=== PATIENT | male | born 1960 | race Caucasian/White ===

== ENCOUNTER 2022-01-02 01:37 | Inpatient (IN) | payer SELFPAY ==
[2022-01-02 02:58] LABS: Absolute Lymphocytes (CBC) 1.3 K/uL (0.7-4.9); Hematocrit 45.3 % (39.6-49.0); Lymphocytes % 20.5 % (15.3-44.8); MCV 86.7 fL (80-100); MPV 8.6 fL (7.6-11.3); RBC Red Blood Cell Count 5.23 M/uL (4.33-5.43)
[2022-01-02 03:16] LABS: Potassium 3.5 mmol/L (3.5-5.1)
[2022-01-02] MEDS ORDERED: METHYLPREDNISOLONE 125 MG INJ ONE (03:18)
[2022-01-02] MEDS ORDERED: LEVALBUTEROL 1.25 MG/3 ML NEB ONE (03:18)
[2022-01-02] MEDS ORDERED: BENZONATATE 100 MG CAP PO ONE (03:18)
[2022-01-02 03:20] LABS: Troponin High Sensitivity 113.9 pg/mL (<58.9)
[2022-01-02] MEDS ORDERED: FUROSEMIDE 40 MG/4 ML VIAL ONE (03:27)
--- NOTE | 2022-01-02 04:28 | P.HP ---
Certification for Inpatient Patient admitted to: Observation With expected LOS: <2 Midnights Patient will require the following post-hospital care: None Practitioner: I am a practitioner with admitting privileges, knowledge of patient current condition, hospital course, and medical plan of care. Services: Services provided to patient in accordance with Admission requirements found in Title 42 Section 412.3 of the Code of Federal Regulations Patient History Date of Service: 01/02/22 Reason for admission: COPD Exacerbation, Elevated Troponin History of Present Illness: Patient is a 61-year-old male with CHF (unknown EF), COPD, HTN who presented to the ED with complaints of shortness of breath. Patient was already in the hospital staying with his , whom I admitted earlier this evening, when his shortness of breath began. Patient reports smoking 1ppd. He was noted to be hypertensive and tachypneic upon arrival but saturating 100% on room air. Labs significant for troponin 113, BNP 8266, Cr 1.47, BUN 35, chest xray negative. He was given breathing treatments, therapeutic lovenox, aspirin, lasix, solumedrol, and tessalon perles. He denies chest pain. He reports feeling a little better after treatment. Patient is admitted for further evaluation and treatment. Home medications list reviewed: Yes - Past Medical/Surgical History Diabetic: No -: Hypertension -: COPD -: CHF -: Appendectomy Psychosocial/ Personal History: Patient is . - Social History Smoking Status: Current every day smoker Alcohol use: No CD- Drugs: No Caffeine use: Yes Place of Residence: [facility] Review of Systems Respiratory: Shortness of Breath Physical Examination - Physical Exam General: Alert, In no apparent distress HEENT: Atraumatic, PERRLA, EOMI, Sclerae nonicteric Neck: Supple, 2+ carotid pulse no bruit, No LAD, Without JVD or thyroid abnormality Respiratory: Expiratory wheezes Cardiovascular: Regular rate/rhythm, Normal S1 S2 Gastrointestinal: Normal bowel sounds, No tenderness Musculoskeletal: No tenderness Integumentary: No rashes Neurological: Normal speech, Normal strength at 5/5 x4 extr, Normal tone, Normal affect - Studies Laboratory Data (last 24 hrs) 01/02/22 02:38: WBC 6.4, Hgb 15.2, Hct 45.3, Plt Count 245 01/02/22 02:38: Sodium 139, Potassium 3.5, BUN 35 H, Creatinine 1.47 H, Glucose 88 01/02/22 02:35: WBC Cancelled, Hgb Cancelled, Hct Cancelled, Plt Count Cancelled Assessment and Plan - Problems (Diagnosis) (1) Elevated troponin Current Visit: Yes Status: Acute (2) COPD exacerbation Current Visit: Yes Status: Acute (3) Tobacco abuse Current Visit: Yes Status: Chronic (4) Hypertension Current Visit: Yes Status: Chronic Qualifiers: Hypertension type: primary hypertension Qualified Code(s): I10 - Essential (primary) hypertension (5) CHF (congestive heart failure) Current Visit: Yes Status: Acute Qualifiers: Heart failure type: unspecified Heart failure chronicity: acute on chronic Qualified Code(s): I50.9 - Heart failure, unspecified - Plan -Continue therapeutic lovenox q12h. Cardiology consulted. Monitor on telemetry -Repeat troponin in 6 hours and trend -Breathing treatments as needed -Scheduled nebs and IV steroids -Monitor pulse ox. Supplemental O2 as needed -Lipid panel, TSH, and echo ordered -Monitor and replete electrolytes per protocol -Full code Discharge Plan: Home Plan to discharge in: 24 Hours - Advance Directives Does patient have a Living Will: No Does patient have a Durable POA for Healthcare: No - Code Status/Comfort Care Code Status Assessed: Yes (Full) Critical Care: No Time Spent Managing Pts Care (In Minutes): 50
[2022-01-02] MEDS ORDERED: ASPIRIN EC 81 MG TAB PO ONE (04:31)
[2022-01-02] MEDS ORDERED: ENOXAPARIN 80 MG/0.8 ML SQ ONE (04:32)
--- NOTE | 2022-01-02 06:00 | EDPHYS ---
Physician Documentation [facility] Name: Fausto Johnson Age: 61 yrs Sex: Male : 1960 Arrival Date: 01/02/2022 Time: 01:38 Bed 14 Private MD: ED Physician Tushar Armstrong HPI: 01/02 05:59 This 61 yrs old Male presents to ER via Wheelchair with complaints of Breathing kdr Difficulty. 05:59 The patient has shortness of breath at rest, with light activity. Onset: The kdr symptoms/episode began/occurred gradually, 2 day(s) ago. Duration: The symptoms are continuous, and are steadily getting worse. The patient's shortness of breath is aggravated by coughing, exertion, light activity. Associated signs and symptoms: Pertinent positives: Pertinent negatives:. Severity of symptoms: At their worst the symptoms were mild in the emergency department the symptoms are unchanged. The patient has not experienced similar symptoms in the past. The patient has not recently seen a physician. Patient states that he has been out of his medications for the last couple of days. Specifically he notes that his Lasix is important to his continued health and well being.. Historical: - Allergies: 01:58 NKDA; bh1 - Home Meds: 01:58 Lasix 20 mg Oral tab 1 tab once daily [Active]; lisinopril 5 mg Oral tab 1 tab once bh1 daily [Active]; 02:00 Advair Diskus 100-50 mcg/dose Inhl dsdv 1 puff 2 times per day [Active]; albuterol bh1 sulfate 90 mcg/actuation Inhl aebs 1 puff every 4 hours [Active]; SPERIVA [Active]; 02:08 metoprolol tartrate 50 mg Oral tab 1 tab 2 times per day [Active]; bh1 - PMHx: 02:00 COPD; EMPHESEMA; CHF; Congestive heart failure; Hypertensive disorder; bh1 - Immunization history:: Adult Immunizations up to date. - Social history:: Smoking status: Patient reports the use of cigarette tobacco products, smokes one pack cigarettes per day. ROS: 05:59 Constitutional: Negative for fever, chills, and weight loss, Eyes: Negative for injury, kdr pain, redness, and discharge, Neck: Negative for injury, pain, and swelling, Cardiovascular: Negative for chest pain, palpitations, and edema, Abdomen/GI: Negative for abdominal pain, nausea, vomiting, diarrhea, and constipation, Back: Negative for injury and pain, : Negative for injury, bleeding, discharge, and swelling, MS/Extremity: Negative for injury and deformity, Skin: Negative for injury, rash, and discoloration, Neuro: Negative for headache, weakness, numbness, tingling, and seizure activity. Psych: Negative for depression, anxiety, suicide ideation, homicidal ideation, and hallucinations, Allergy/Immunology: Negative for hives, rash, and allergies, Endocrine: Negative for neck swelling, polydipsia, polyuria, polyphagia, and marked weight changes, Hematologic/Lymphatic: Negative for swollen nodes, abnormal bleeding, and unusual bruising. 05:59 Respiratory: Positive for cough, with no reported sputum, dyspnea on exertion, shortness of breath, on exertion. Exam: 05:59 Constitutional: This is a well developed, well nourished patient who is awake, alert, kdr and in no acute distress. Head/Face: Normocephalic, atraumatic. Eyes: Pupils equal round and reactive to light, extra-ocular motions intact. Lids and lashes normal. Conjunctiva and sclera are non-icteric and not injected. Cornea within normal limits. Periorbital areas with no swelling, redness, or edema. Neck: Trachea midline, no thyromegaly or masses palpated, and no cervical lymphadenopathy. Supple, full range of motion without nuchal rigidity, or vertebral point tenderness. No Meningismus. Chest/axilla: Normal chest wall appearance and motion. Nontender with no deformity. No lesions are appreciated. Cardiovascular: Regular rate and rhythm with a normal S1 and S2. No gallops, murmurs, or rubs. Normal PMI, no JVD. No pulse deficits. Respiratory: Lungs have equal breath sounds bilaterally, clear to auscultation and percussion. No rales, rhonchi or wheezes noted. No increased work of breathing, no retractions or nasal flaring. Abdomen/GI: Soft, non-tender, with normal bowel sounds. No distension or tympany. No guarding or rebound. No evidence of tenderness throughout. Back: No spinal tenderness. No costovertebral tenderness. Full range of motion. Skin: Warm, dry with normal turgor. Normal color with no rashes, no lesions, and no evidence of cellulitis. MS/ Extremity: Pulses equal, no cyanosis. Neurovascular intact. Full, normal range of motion. Neuro: Awake and alert, GCS 15, oriented to person, place, time, and situation. Cranial nerves II-XII grossly intact. Motor strength 5/5 in all extremities. Sensory grossly intact. Cerebellar exam normal. Normal gait. Psych: Awake, alert, with orientation to person, place and time. Behavior, mood, and affect are within normal limits. 07:07 ECG was reviewed by the Attending Physician. kdr Vital Signs: 01:56 BP 173 / 112; Pulse 73; Resp 22; Temp 98.2(O); Pulse Ox 100% ; Weight 74.84 kg; Height bh1 5 ft. 5 in. (165.10 cm); Pain 0/10; 03:40 BP 164 / 112; Pulse 94; Resp 30; Pulse Ox 97% on R/A; sm5 07:00 BP 165 / 98; Pulse 77; Resp 25; Pulse Ox 92% ; bp 01:56 Body Mass Index 27.46 (74.84 kg, 165.10 cm) bh1 MDM: 05:59 Patient medically screened. kdr 05:59 Data reviewed: vital signs, nurses notes, lab test result(s), radiologic studies. kdr Counseling: I had a detailed discussion with the patient and/or guardian regarding: the historical points, exam findings, and any diagnostic results supporting the discharge/admit diagnosis, lab results, radiology results, the need for further work-up and treatment in the hospital. 01/02 02:18 Order name: Basic Metabolic Panel; Complete Time: 04:10 [facility] 01/02 02:18 Order name: CBC with Diff; Complete Time: 04:10 [facility] 01/02 02:18 Order name: NT PRO-BNP; Complete Time: 04:10 [facility] 01/02 02:18 Order name: Troponin HS; Complete Time: 04:10 [facility] 01/02 02:18 Order name: XRAY Chest (1 view) [facility] 01/02 05:10 Order name: SARS-COV-2 RT PCR (Document "Date of Onset" if Symptomatic) 01/02 06:12 Order name: SARS-COV-2 RT PCR [facility] 01/02 02:18 Order name: EKG; Complete Time: 02:36 sm5 01/02 02:18 Order name: Cardiac monitoring; Complete Time: 02:43 [facility] 01/02 02:18 Order name: EKG - Nurse/Tech; Complete Time: 02:18 [facility] 01/02 02:18 Order name: IV Saline Lock; Complete Time: 02:39 01/02 02:18 Order name: Labs collected and sent; Complete Time: 02:39 [facility] 01/02 02:18 Order name: O2 Per Protocol; Complete Time: 02:42 [facility] 01/02 02:18 Order name: O2 Sat Monitoring; Complete Time: 02:43 5 EC:07 Rate is 75 beats/min. Rhythm is regular, Sinus Rhythm with No ectopy. AR interval is kdr normal. Clinical impression: NSR w/ Non-specific ST/T Changes. Administered Medications: 03:17 Drug: SOLU-Medrol (methylPrednisoLONE) 125 mg Route: IVP; Site: right forearm; sm5 04:21 Follow up: Response: No adverse reaction sm5 03:17 Drug: Tessalon Perle (benzonatate) 200 mg Route: PO; sm5 04:21 Follow up: Response: No adverse reaction sm5 03:17 Drug: Xopenex (levalbuterol) (3) 1.25 mg Route: Inhalation; sm5 04:22 Follow up: Response: No adverse reaction sm5 03:27 Drug: Lasix (furosemide) 40 mg Route: IVP; Site: right forearm; sm5 04:22 Follow up: Response: No adverse reaction sm5 04:28 Drug: Aspirin 81 mg Route: PO; sm5 05:22 Follow up: Response: No adverse reaction sm5 04:28 Drug: Lovenox (enoxaparin) 1 mg/kg Route: Sub-Q; Site: left upper abdomen; sm5 05:22 Follow up: Response: No adverse reaction sm5 Disposition Summary: 01/02/22 05:59 Hospitalization Ordered Hospitalization Status: Inpatient Admission kdr Provider: Ramón Mckeon Location: Telemetry/MedSurg (Inpatient) kdr Condition: Fair kdr Problem: an acute exacerbation kdr Symptoms: have improved kdr Bed/Room Type: Standard kdr Room Assignment: [facility](01/02/22 07:11) em1 Diagnosis - Shortness of breath kdr - COPD/ Chronic obstructive pulmonary disease with (acute) exacerbation kdr Forms: - Medication Reconciliation Form kdr - SBAR form kdr Signatures: Dispatcher [employer] EDMS Tushar Armstrong MD MD kdr Amos Leavitt em1 Kimber Haas RN RN gin5 Beena Valle PA PA sb3 Alison Coronado RN RN 1 Corrections: (The following items were deleted from the chart) 02:08 01:58 Home Meds: [facility]; [place] [address] 03:05 02:44 CBC+H.LAB.BRZ ordered. EDNC EDMS 07:11 05:59 kdr em1
--- NOTE | 2022-01-02 06:00 | ER ---
Nurse's Notes [facility] Name: Fausto Johnson Age: 61 yrs Sex: Male : 1960 Arrival Date: 01/02/2022 Time: 01:38 Bed 14 Private MD: Diagnosis: Shortness of breath;COPD/ Chronic obstructive pulmonary disease with (acute) exacerbation Presentation: 01/02 01:56 Chief complaint: Patient states: SOB WHILE VISITING HIS THAT IS ADMITTED ON THE [facility] MEDICAL UNIT HERE. Coronavirus screen: Vaccine status: Patient reports receiving the 2nd dose of the covid vaccine. shortness of breath. Ebola Screen: Patient negative for fever greater than or equal to 101.5 degrees Fahrenheit, and additional compatible Ebola Virus Disease symptoms. Initial Sepsis Screen: Does the patient meet any 2 criteria? No. Patient's initial sepsis screen is negative. Does the patient have a suspected source of infection? No. Patient's initial sepsis screen is negative. Risk Assessment: Do you want to hurt yourself or someone else? Patient reports no desire to harm self or others. Onset of symptoms was January 02, 2022. 01:56 Method Of Arrival: Wheelchair [facility] 01:56 Acuity: AMRIT 3 [facility] Triage Assessment: 02:01 General: Appears in no apparent distress. Behavior is calm, cooperative, appropriate [facility] for age. Pain: Denies pain. Respiratory: Reports shortness of breath Onset: The symptoms/episode began/occurred suddenly, the patient has mild shortness of breath. Historical: - Allergies: 01:58 NKDA; [facility] - Home Meds: 01:58 Lasix 20 mg Oral tab 1 tab once daily [Active]; lisinopril 5 mg Oral tab 1 tab once [facility] daily [Active]; 02:00 Advair Diskus 100-50 mcg/dose Inhl dsdv 1 puff 2 times per day [Active]; albuterol bh1 sulfate 90 mcg/actuation Inhl aebs 1 puff every 4 hours [Active]; SPERIVA [Active]; 02:08 metoprolol tartrate 50 mg Oral tab 1 tab 2 times per day [Active]; [facility] - PMHx: 02:00 COPD; EMPHESEMA; CHF; Congestive heart failure; Hypertensive disorder; [facility] - Immunization history:: Adult Immunizations up to date. - Social history:: Smoking status: Patient reports the use of cigarette tobacco products, smokes one pack cigarettes per day. Screenin:40 Abuse screen: Denies threats or abuse. Denies injuries from another. Nutritional sm5 screening: No deficits noted. Tuberculosis screening: No symptoms or risk factors identified. Fall Risk None identified. Assessment: 03:15 General: Appears in no apparent distress. Behavior is cooperative. Neuro: Level of sm5 Consciousness is awake, alert, obeys commands, Oriented to person, place, time, situation. Cardiovascular: Capillary refill < 3 seconds Patient's skin is warm and dry. Rhythm is regular. Respiratory: Reports cough that is productive, Airway is patent Trachea midline Respiratory effort is even, labored, Breath sounds are clear bilaterally. 04:45 Reassessment: No changes from previously documented assessment. Patient and/or family [facility] updated on plan of care and expected duration. Pain level reassessed. 05:54 Reassessment: pt requesting to go to his car to grab some belongings. pt escorted by [facility] security to car in parking lot due to pt being admitted and having an IV. 07:00 Reassessment: RECD REPORT FROM ABELINO CULVER. 61YO WM P/W SOB WHILE VISITING ADMITTED . bp PT ADMIT IN PROCESS FOR COPD EXACERBATION. Vital Signs: 01:56 BP 173 / 112; Pulse 73; Resp 22; Temp 98.2(O); Pulse Ox 100% ; Weight 74.84 kg; Height bh1 5 ft. 5 in. (165.10 cm); Pain 0/10; 03:40 BP 164 / 112; Pulse 94; Resp 30; Pulse Ox 97% on R/A; sm5 07:00 BP 165 / 98; Pulse 77; Resp 25; Pulse Ox 92% ; bp 01:56 Body Mass Index 27.46 (74.84 kg, 165.10 cm) bh1 ED Course: 01:38 Patient arrived in ED. bp1 01:58 Triage completed. bh1 02:01 Arm band placed on right wrist. bh1 02:18 Kimber Haas, ABIOLA is Primary Nurse. 5 03:07 Tushar Armstrong MD is Attending Physician. kdr 03:10 XRAY Chest (1 view) In Process Unspecified. EDMS 03:20 Notified ED physician of a critical lab result(s). troponin of 113.9 Dr Patti lantigua notified. 03:30 Inserted saline lock: 20 gauge in right forearm, using aseptic technique. bp 03:40 Patient has correct armband on for positive identification. Bed in low position. Call sm5 light in reach. Side rails up X2. 05:22 SARS-COV-2 RT PCR (Document "Date of Onset" if Symptomatic) Sent. sm5 05:53 No provider procedures requiring assistance completed. sm5 05:57 Ramón Mckeon MD is Hospitalizing Provider. kdr 07:06 Primary Nurse role handed off by Kimber Haas RN bp 07:06 Wilver Bedoya, ABIOLA is Primary Nurse. bp 07:28 Patient admitted, IV remains in place. bp Administered Medications: 03:17 Drug: SOLU-Medrol (methylPrednisoLONE) 125 mg Route: IVP; Site: right forearm; sm5 04:21 Follow up: Response: No adverse reaction sm5 03:17 Drug: Tessalon Perle (benzonatate) 200 mg Route: PO; sm5 04:21 Follow up: Response: No adverse reaction sm5 03:17 Drug: Xopenex (levalbuterol) (3) 1.25 mg Route: Inhalation; sm5 04:22 Follow up: Response: No adverse reaction sm5 03:27 Drug: Lasix (furosemide) 40 mg Route: IVP; Site: right forearm; sm5 04:22 Follow up: Response: No adverse reaction sm5 04:28 Drug: Aspirin 81 mg Route: PO; sm5 05:22 Follow up: Response: No adverse reaction sm5 04:28 Drug: Lovenox (enoxaparin) 1 mg/kg Route: Sub-Q; Site: left upper abdomen; sm5 05:22 Follow up: Response: No adverse reaction sm5 Medication: 03:40 VIS not applicable for this client. sm5 Outcome: 05:59 Decision to Hospitalize by Provider. kdr 07:29 Condition: stable bp 07:29 Instructed on the need for admit. 07:50 Admitted to Med/surg accompanied by tech, via wheelchair, room 212, with chart, Report bp called to BOLIVAR CULVER 08:38 Patient left the ED. iw Signatures: Dispatcher [employer] EDMS Tushar Armstrong MD MD kdr Ballard, Brenda RN RN bb Ariana Wooten, Wilver De Leon RN, RN RN bp Ailyn Valera Sarah, RN RN [facility] Alison Coronado RN RN [facility] Corrections: (The following items were deleted from the chart) 02:08 01:58 Home Meds: [facility]; [place] [id number]
[2022-01-02] MEDS ORDERED: ACETAMINOPHEN 500 MG TAB PO PRN (08:05)
[2022-01-02] MEDS: ALBUTEROL 2.5 MG/3 ML NEB SOL NEB SCH ×3 (08:05→20:00)
[2022-01-02] MEDS ORDERED: METHYLPREDNISOLONE 125 MG INJ IV SCH (08:05)
[2022-01-02] MEDS ORDERED: ONDANSETRON 4 MG/2 ML VIAL IV PRN (08:05)
[2022-01-02] MEDS ORDERED: BENZONATATE 100 MG CAP PO PRN (08:05)
[2022-01-02] MEDS: IPRATROPIUM BROM 0.5MG/2.5ML NEB SCH ×3 (08:05→20:00)
[2022-01-02 10:11] VITALS: BMI 28.8
[2022-01-02 10:18] LABS: CKMB Creatine Kinase MB 4.6 ng/mL (1.0-3.6); Thyroid Stimulating Hormone 0.31 uIU/mL (0.360-3.740)
[2022-01-02 10:36] LABS: Troponin High Sensitivity 78.5 pg/mL (<58.9)
[2022-01-02] MEDS: FUROSEMIDE 40 MG TABLET PO SCH (11:11)
[2022-01-02] MEDS: lisinopriL 20 MG TAB PO SCH (11:11)
--- NOTE | 2022-01-02 13:02 | EKG ---
Test Date: 2022-01-02 Test Time: 02:10:51 Photograph Editor: TAMANNA MEASUREMENT RESULTS: Intervals: Rate: 75 NM: 206 QRSD: 108 QT: 442 QTc: 493 [place]: P: 46 NM: 206 QRS: -49 T: 35 INTERPRETIVE STATEMENTS: Normal sinus rhythm Possible Left atrial enlargement Left anterior fascicular block Inferior infarct, age undetermined Anterior infarct, age undetermined Abnormal ECG No previous ECG available for comparison Electronically Signed On 01-02-22 13:01:26 CDT by Miah Sullivan
--- NOTE | 2022-01-02 14:00 | ECHO ---
HEIGHT: 5 ft 4 in WEIGHT: 167 lb 9 oz DATE OF STUDY: 01/02/[address]: Froy Chowdary MD 2-DIMENSIONAL: YES M.MODE: YES DOPPLER: YES COLOR FLOW: YES TDS: NO PORTABLE: YES DEFINITY: NO BUBBLE STUDY: NO DIAGNOSIS: CONGESTIVE HEART FAILURE CARDIAC HISTORY: CATHERIZATION: SURGERY: PROSTHETIC VALVE: PACEMAKER: MEASUREMENTS (cm) DIASTOLIC (NORMALS) SYSTOLIC (NORMALS) IVSd 1.3 (0.6-1.2) LA Diam 4.5 (1.9-4.0) LVEF 45-50% LVIDd 5.0 (3.5-5.7) LVIDs 3.7 (2.0-3.5) %FS 27% LVPWd 1.2 (0.6-1.2) Ao Diam 2.8 (2.0-3.7) 2 DIMENSIONAL ASSESSMENT: RIGHT ATRIUM: NORMAL LEFT ATRIUM: ENLARGED RIGHT VENTRICLE: NORMAL LEFT VENTRICLE: MILD LEFT VENTRICULAR HYPERTROPHY TRICUSPID VALVE: NORMAL MITRAL VALVE: NORMAL PULMONIC VALVE: NORMAL AORTIC VALVE: NORMAL PERICARDIAL EFFUSION: NONE AORTIC ROOT: NORMAL LEFT VENTRICULAR WALL MOTION: MILD ANTERIOR WALL HYPOKINESIS. DOPPLER/COLOR FLOW: MILD TRICUSPID AND PULMONARY REGURGITATION. COMMENTS: MILDLY DEPRESSED LEFT VENTRICULAR EJECTION FRACTION 45-50%. MILD ANTERIOR WALL HYPOKINESIS. LEFT ATRIAL ENLARGEMENT. MILD TRICUSPID AND PULMONARY REGURGITATION. MODERATE DIASTOLIC DYSFUNCTION. TECHNOLOGIST: Dion STEARNS
--- NOTE | 2022-01-02 15:05 | RAD REPORT ---
EXAM DESCRIPTION: RAD - Chest Single View - 01/02/2022 3:08 am CLINICAL HISTORY: The patient is 61 years old and is Male; SOB TECHNIQUE: Single view of the chest. COMPARISON: No relevant prior studies available. FINDINGS: Lungs: No pulmonary vascular congestion or consolidation. Pleural space: Unremarkable. No pneumothorax. Heart: Unremarkable. No cardiomegaly. Mediastinum: Unremarkable. Bones/joints: No acute fracture visualized. Upper abdomen: No free air in the visualized upper abdomen. IMPRESSION: No acute cardiopulmonary process identified. Electronically signed by: Ashley Thibodeaux MD 01/02/2022 4:09 AM CDT Due to temporary technical issues with the PACS/Fluency reporting system, reports are being signed by the in house radiologists without review as a courtesy to insure prompt reporting. The interpreting radiologist is fully responsible for the content of the report.
[2022-01-02 15:23] LABS: Specific Gravity 1.015 (1.005-1.030); Urine Bilirubin Negative (Negative); Urine Blood Negative (Negative); Urine Clarity Clear (Clear); Urine Color Yellow (Yellow); Urine Glucose 2+ (Negative); Urine Protein Negative (Negative); Urine Urobilinogen 0.2 mg/dL (0.2-1.0); Urine pH 5.5 (5.0-7.0)
[2022-01-02] MEDS: ENOXAPARIN 80 MG/0.8 ML SQ SCH (16:16)
[2022-01-02] MEDS: DULERA 100/5 (MOMETASONE/FORMOTEROL) INHALER IH SCH (20:20)
[2022-01-02] MEDS: predniSONE 20 MG TAB PO SCH (20:21)
[2022-01-02] MEDS ORDERED: ATORVASTATIN 40 MG TAB PO SCH (21:00)
[2022-01-02] MEDS ORDERED: QUETIAPINE 25 MG TAB PO SCH (21:00)
[2022-01-02] MEDS ORDERED: METOPROLOL XL 25 MG TAB PO SCH (21:00)
[2022-01-02] MEDS ORDERED: FUROSEMIDE 40 MG TABLET PO SCH ×2 (21:00)
[2022-01-02] MEDS: DULERA 200/5 (MOMETASONE/FORMOTEROL) INHALER IH SCH (21:00)
[2022-01-02] MEDS ORDERED: FLUOXETINE 20 MG CAP PO SCH (21:00)
[2022-01-02] MEDS: GABAPENTIN 300 MG CAP PO SCH (21:08)
[2022-01-02] MEDS: BUSPIRONE HCL 15 MG TABLET PO SCH (21:54)
[2022-01-03] MEDS: IPRATROPIUM BROM 0.5MG/2.5ML NEB SCH ×3 (01:20→14:00)
[2022-01-03] MEDS: ALBUTEROL 2.5 MG/3 ML NEB SOL NEB SCH ×3 (01:20→14:00)
[2022-01-03] MEDS: ENOXAPARIN 80 MG/0.8 ML SQ SCH (04:16)
[2022-01-03 06:23] LABS: Absolute Lymphocytes (CBC) 0.3 K/uL (0.7-4.9); Hematocrit 40.7 % (39.6-49.0); Lymphocytes % 3.1 % (15.3-44.8); MCV 88.6 fL (80-100); MPV 9.1 fL (7.6-11.3)
[2022-01-03 06:24] LABS: Magnesium 2.5 mg/dL (1.8-2.4); Potassium 3.3 mmol/L (3.5-5.1)
[2022-01-03] MEDS ORDERED: POTASSIUM 25 MEQ EFFERV TAB PO ONE (07:33)
[2022-01-03] MEDS: GABAPENTIN 300 MG CAP PO SCH (08:23)
[2022-01-03] MEDS: BUSPIRONE HCL 15 MG TABLET PO SCH (08:24)
[2022-01-03] MEDS: predniSONE 20 MG TAB PO SCH (08:24)
[2022-01-03] MEDS: FUROSEMIDE 40 MG TABLET PO SCH (08:25)
[2022-01-03] MEDS: DULERA 200/5 (MOMETASONE/FORMOTEROL) INHALER IH SCH (08:26)
[2022-01-03] MEDS: lisinopriL 20 MG TAB PO SCH (08:27)
[2022-01-03] MEDS: DULERA 100/5 (MOMETASONE/FORMOTEROL) INHALER IH SCH (08:28)
[2022-01-03] MEDS ORDERED: POTASSIUM CL SA 10 MEQ TAB PO ONE (09:00)
[2022-01-03] MEDS ORDERED: lisinopriL 20 MG TAB PO SCH (09:00)
[2022-01-03] MEDS ORDERED: FUROSEMIDE 40 MG/4 ML VIAL IV SCH (09:00)
[2022-01-03] MEDS ORDERED: METHYLPREDNISOLONE 40 MG INJ IV SCH (09:35)
--- NOTE | 2022-01-03 09:37 | P.PN ---
Subjective Date of Service: 01/03/22 Chief Complaint: Non-STEMI COPD exacerbation Patient is still complaining of some chest pressure although is feeling better shortness of breath is improved prior history of coronary artery disease he has had 2 stress test done complain of some chest pressure on exertion echocardiogra m is abnormal troponins are declining Review of Systems Respiratory: Shortness of Breath Cardiovascular: Chest Pain Physical Examination - Vital Signs Temperature: 98 F Blood Pressure: 177/92 Pulse: 56 Respirations: 16 Pulse Ox (%): 99 - Physical Exam General: Alert, In no apparent distress, Oriented x3 Respiratory: Clear to auscultation bilaterally Cardiovascular: No edema, Regular rate/rhythm - Studies Laboratory Data (last 24 hrs) 01/02/22 08:55: Triglycerides 57, Cholesterol 162, HDL Cholesterol 57, Cholesterol/HDL Ratio 2.84 Assessment And Plan - Current Problems (Diagnosis) (1) Non-STEMI (non-ST elevated myocardial infarction) Current Visit: Yes Status: Acute Plan: Patient was admitted with some chest discomfort elevated troponins are declining abnormal EKG no acute changes prior infarct/echocardiogram below abnormal discussed with Dr. Sullivan n.p.o. : MILDLY DEPRESSED LEFT VENTRICULAR EJECTION FRACTION 45-50%. MILD ANTERIOR WALL HYPOKINESIS. LEFT ATRIAL ENLARGEMENT. MILD TRICUSPID AND PULMONARY REGURGITATION. MODERATE DIASTOLIC DYSFUNCTION. Will change to clonidine patch IV Solu-Medrol for now continue with bronchodilators presumed chronic renal failure some IV Lasix today
[2022-01-03 09:39] VITALS: O2SAT 97
[2022-01-03] MEDS ORDERED: CLONIDINE 0.2 MG/PATCH TD SCH (10:00)
[2022-01-03 10:32] VITALS: BP 136/68; TEMP 97
[2022-01-03 12:58] LABS: Blood Morphology Comment NOT SEEN (NOT SEEN); Platelet Estimate ADEQ; White Blood Cell Scan OK (OK)
--- NOTE | 2022-01-03 14:32 | P.DS ---
Admission Date: 01/02/22 Discharge Date: 01/03/22 Disposition: ROUTINE DISCHARGE Discharge Condition: FAIR Reason for Admission: Non-STEMI COPD exacerbation - Problems (1) Non-STEMI (non-ST elevated myocardial infarction) Current Visit: Yes Status: Acute Brief History of Present Illness: 11 years of age admitted with COPD exacerbation elevated troponins Hospital Course: Patient did well during the course of his stay seen by tool lapper hand Dr. Arredondo. Elevated troponins on admission there were declining/patient has a history of coronary artery disease he is noncompliant with medication has not been taking any in addition is a his echo cardiogram was abnormal with some dyskinesis patient has been instructed to resume all his home medication he has a beta- bonifacio and anticoagulant in addition I also prescribed him some low-dose prednisone and to take a bronchodilator follow-up with me at the time of discharge he was alert oriented responsive walking around without any complaints eating and drinking fine labs reviewed Vital Signs/Physical Exam: Temp Pulse Resp BP Pulse Ox 97 F 79 24 H 136/68 95 01/03/22 09:40 01/03/22 09:40 01/03/22 09:40 01/03/22 09:40 01/03/22 09:40 Laboratory Data at Discharge: WBC 10.4 K/uL (4.3-10.9) D 01/03/22 05:30 Hgb 13.8 g/dL (13.6-17.9) 01/03/22 05:30 Hct 40.7 % (39.6-49.0) 01/03/22 05:30 Plt Count 229 K/uL (152-406) 01/03/22 05:30 Sodium 136 mmol/L (136-145) 01/03/22 05:30 Potassium 3.3 mmol/L (3.5-5.1) L 01/03/22 05:30 BUN 49 mg/dL (7-18) H 01/03/22 05:30 Creatinine 1.48 mg/dL (0.55-1.3) H 01/03/22 05:30 Glucose 181 mg/dL (74-106) H 01/03/22 05:30 Magnesium 2.5 mg/dL (1.8-2.4) H 01/03/22 05:30 Triglycerides 57 mg/dL (<150) 01/02/22 08:55 Cholesterol 162 mg/dL (<200) 01/02/22 08:55 HDL Cholesterol 57 mg/dL (40-60) 01/02/22 08:55 Cholesterol/HDL Ratio 2.84 01/02/22 08:55 Home Medications: Albuterol Neb [Proventil 0.083% Neb Soln] 2.5 mg IH Q6H PRN 01/02/22 Aspirin [Aspirin EC 81 MG] 1 tab PO DAILY 01/02/22 Atorvastatin Calcium 40 mg PO BEDTIME 01/02/22 Buspirone HCl [Buspar] 15 mg PO BID 01/02/22 Clopidogrel Bisulfate [Plavix] 75 mg PO DAILY 01/02/22 Fluoxetine HCl [Prozac] 20 mg PO BEDTIME 01/02/22 Fluticasone/Salmeterol [Advair 250-50 Diskus] 1 each IH BID 01/02/22 Furosemide [Lasix] 40 mg PO BID 01/02/22 Gabapentin 600 mg PO BID 01/02/22 Lisinopril [Zestril] 40 mg PO DAILY 01/02/22 Metoprolol Succinate 25 mg PO BEDTIME 01/02/22 Quetiapine Fumarate [Seroquel] 50 mg PO BEDTIME 01/02/22 predniSONE [Deltasone*] 10 mg PO BID #20 tab 01/03/22 New Medications: predniSONE [Deltasone*] 10 mg PO BID #20 tab Physician Discharge Instructions: Simone from the hospital to take 2 puffs twice a day Followup: Bolivar Pradhan MD [ACTIVE - CAN ADMIT] - NONE,NONE [Primary Care Provider] -
--- NOTE | 2022-01-03 19:59 | CON ---
Date of Consultation: 01/03/2022 Reason For Consultation: Elevated troponin. History Of Present Illness: A 61-year-old male with history of COPD, questionable history of heart f ailure. He said that he had heart attacks in the past, and he had a heart catheterization, but no st ents were placed in him, and the patient is living in his car, unable to afford his basic medications . Presented to the emergency room with shortness of breath, found to be in COPD exacerbation. Denie d having any chest pain and no further chest pain. No chest pain while in the hospital. Past Medical History: Hypertension, COPD, heart failure. Medications: Refer reconciliation sheet for detailed list. Allergies: NO KNOWN DRUG ALLERGIES. Family History: No premature coronary artery disease or cancer. Social History: He is an active smoker. Does not drink, use any drugs. Review of Systems: All systems reviewed and they are negative except as mentioned in the HPI. Physical Examination: Vital Signs: Reviewed. Head And Neck: Pupils are equal and reactive to light. Intact eye movements. No JVD. No cervical lymphadenopathy. Neck: Supple. Thyroid is not enlarged. Lungs: Clear to auscultation bilaterally. No rhonchi, rales, or crackles. No accessory muscle use. Heart: Regular rate and rhythm. No extra sounds. Abdomen: Soft, nontender. Bowel sounds positive. No organomegaly. No masses or hernia. No rigidi ty or rebound. Extremities: No edema, clubbing, cyanosis. Intact pulses. Skin: No rashes. Neurologic: Alert, awake. No acute focal deficits appreciated. Investigations: Troponin initially was 113 and then down to 57. Creatinine is 1.48. Hemoglobin is 13.8. Assessment And Recommendations: 1.Elevated troponin, very mild. There is no chest pain. The patient is in chronic obstructive pulm onary disease exacerbation, mildly elevated creatinine. This is likely demand ischemia. He claimed that he had normal coronary angiogram within the recent past. At this point, from a cardiology stand point, the patient is okay to be released as he has been asymptomatic and can follow up as an outpati ent, and then, at that time, I will plan to obtain an exercise nuclear stress test. The patient enco uraged to quit smoking and follow a low-salt diet. 2.Chronic obstructive pulmonary disease exacerbation, appears to be stable. Encouraged to quit smok ing. SR/MODL Voice ID: [id number] Report ID: [id number]
--- NOTE | 2022-01-05 03:33 | CON ---
Date of Consultation: 01/02/2022 Reason For Consultation: Elevated troponin. History Of Present Illness: Mr. Johnson is 61, is known to have chronic diastolic congestive heart fa ilure, severe COPD, and hypertension, came in with shortness of breath. No chest pain. Elevated tro ponin of 113. His BNP was 8266. Creatinine 1.47. Denied nausea, vomiting, diaphoresis. Denied any fever or chills. Has had shortness of breath. Denied any PND, orthopnea, pedal edema, or palpitati on. Past Medical History: As stated above. Allergies: NONE. Review of Systems: Negative. Social History: Negative. Family History: Noncontributory. Medications: At home include lisinopril, metoprolol, Advair, and Lasix. Physical Examination: Vital Signs: Stable, afebrile. HEENT: Negative. Neck: Supple with no bruit. Chest: Clear. Cardiac: Revealed regular rhythm and rate. No murmurs, gallops, or rubs. Abdomen: Benign. Extremities: Revealed no clubbing, cyanosis, or edema. Diagnostic Data: As stated earlier. Impression And Plan: I think Mr. Johnson's symptoms are more likely related to [id number] chron ic obstructive pulmonary disease exacerbation. I think the troponin is secondary to demand ischemia. BNP is very elevated. He may have exacerbation of his congestive heart failure as well. Creatinin e is elevated, which may have caused elevation of both of those above. Echocardiogram is pending. W e will see what that shows. Continue present regimen. DUANE/HARPER Voice ID: [id number] Report ID: [id number]
== END 2022-01-03 15:37 | disposition home or self-care (01) | DRG 191 ==
LOC: ER 01:37 → ERHOLD 04:31 → 2ND 08:02 → OBSVTOIN 15:18
PROVIDERS: ADMIT Internal Medicine Nephrology; ATTEND Internal Medicine Sleep Medicine
DX: J44.1 Chronic obstructive pulmonary disease with (acute) exacerbation (principal); I50.32 Chronic diastolic (congestive) heart failure; I24.8 Other forms of acute ischemic heart disease; F17.210 Nicotine dependence, cigarettes, uncomplicated; I11.0 Hypertensive heart disease with heart failure; I25.10 Atherosclerotic heart disease of native coronary artery without angina pectoris; Z59.02 Unsheltered homelessness; Z91.14 Patient's other noncompliance with medication regimen; Z20.822 Contact with and (suspected) exposure to COVID-19
CPT/HCPCS: 36415; 71045; 80048; 80061; 81003; 82550; 82553; 83735; 83880; 84443; 84484; 85025; 93005; 93306; 94640; 94760; 96372; 96374; 96375; 99285; G0378; J1940; J2920; J2930; J3535; J7512; U0003

== ENCOUNTER 2022-01-03 21:23 | Observation (INO) | payer SELFPAY ==
[2022-01-03 22:57] LABS: Absolute Lymphocytes (CBC) 0.2 K/uL (0.7-4.9); Hematocrit 39.3 % (39.6-49.0); Lymphocytes % 1.6 % (15.3-44.8); MCV 88.7 fL (80-100); MPV 9.1 fL (7.6-11.3); RBC Red Blood Cell Count 4.43 M/uL (4.33-5.43)
[2022-01-03 23:00] LABS: Protime INR 1.07
[2022-01-03 23:17] LABS: ALT/SGPT 40 U/L (12-78); AST/SGOT 30 U/L (15-37); BUN Blood Urea Nitrogen 65 mg/dL (7-18); Bicarbonate 22 mmol/L (21-32); Glomerular Filtration Rate 40 ml/min (=/>90); Glucose Level 238 mg/dL (74-106); Sodium Level 138 mmol/L (136-145)
[2022-01-03 23:18] LABS: Albumin 3.2 g/dL (3.4-5.0); Alkaline Phosphatase 70 U/L (45-117); Bilirubin Total 0.3 mg/dL (0.2-1.0); Magnesium 2.4 mg/dL (1.8-2.4); NT PRO-BNP 8076 pg/mL (<125); Protein, Total 7.3 g/dL (6.4-8.2)
[2022-01-03 23:29] LABS: Bilirubin Direct < 0.1 mg/dL (0-0.2)
[2022-01-03 23:31] LABS: Troponin High Sensitivity 68.9 pg/mL (<58.9)
--- NOTE | 2022-01-04 01:12 | ER ---
Nurse's Notes [facility] Name: Fausto Johnson Age: 61 yrs Sex: Male : 1960 Arrival Date: 01/03/2022 Time: 21:24 Bed 18 Private MD: Diagnosis: Dizziness and giddiness;Syncope, elevated troponin level;Type 1 diabetes mellitus with hyperglycemia;Non displaced left fibula fracture Presentation: 01/03 21:53 Chief complaint: Patient states: "I was in the hospital and they said they would do a tw5 heart cath next week. Today I have been feeling really weak and today I bent over and when stood up I got really dizzy and I tried to steady myself. Everything went black and I heard a snap in my ankle and I passed out.". Coronavirus screen: Vaccine status: Patient reports receiving the 2nd dose of the covid vaccine. [employer]. Ebola Screen: Patient negative for fever greater than or equal to 101.5 degrees Fahrenheit, and additional compatible Ebola Virus Disease symptoms Patient denies exposure to infectious person. Patient denies travel to an Ebola-affected area in the 21 days before illness onset. Initial Sepsis Screen: Does the patient meet any 2 criteria? No. Patient's initial sepsis screen is negative. Does the patient have a suspected source of infection? No. Patient's initial sepsis screen is negative. Risk Assessment: Do you want to hurt yourself or someone else? Patient reports no desire to harm self or others. Onset of symptoms was January 03, 2022 at 19:30. 21:53 Method Of Arrival: Wheelchair tw5 21:53 Acuity: AMRIT 3 tw5 Triage Assessment: 21:57 General: Appears uncomfortable, Behavior is appropriate for age, agitated, anxious. tw5 Pain: Complains of pain in left leg Pain currently is 10 out of 10 on a pain scale. Historical: - Allergies: 21:57 NKDA; tw5 - Home Meds: 22:52 Advair Diskus 100-50 mcg/dose Inhl dsdv 1 puff 2 times per day [Active]; albuterol hb sulfate 90 mcg/actuation Inhl aebs 1 puff every 4 hours [Active]; Lasix 20 mg Oral tab 1 tab once daily [Active]; lisinopril 5 mg Oral tab 1 tab once daily [Active]; metoprolol tartrate 50 mg Oral tab 1 tab 2 times per day [Active]; SPERIVA [Active]; - PMHx: 21:57 CHF; Congestive heart failure; COPD; EMPHESEMA; Hypertensive disorder; Bipolar tw5 disorder; ptsd; - Immunization history:: Flu vaccine is not up to date. - Social history:: Smoking status: Patient reports the use of cigarette tobacco products, smokes one-half pack cigarettes per day. Screenin:15 Abuse screen: Denies threats or abuse. Denies injuries from another. Nutritional hb screening: No deficits noted. Tuberculosis screening: No symptoms or risk factors identified. Fall Risk None identified. Assessment: 22:15 General: Appears in no apparent distress. Behavior is cooperative, anxious, restless. hb 22:15 Pain: Pain currently is 10 out of 10 on a pain scale. Neuro: Level of Consciousness is hb awake, alert, obeys commands, Oriented to person, place, time, situation. Cardiovascular: Patient's skin is warm and dry. Rhythm is sinus tachycardia. Respiratory: Respiratory effort is even, unlabored, Respiratory pattern is regular, symmetrical. GI: No signs and/or symptoms were reported involving the gastrointestinal system. : No signs and/or symptoms were reported regarding the genitourinary system. EENT: No signs and/or symptoms were reported regarding the EENT system. Derm: Skin is pink, warm \\T\\ dry. Musculoskeletal: Reports pain in left hip and left ankle. 23:33 Reassessment: Patient appears in no apparent distress at this time. Patient and/or hb family updated on plan of care and expected duration. Pain level reassessed. Patient is alert, oriented x 3, equal unlabored respirations, skin warm/dry/pink. Vital Signs: 21:53 BP 103 / 64; Pulse 92; Resp 18; Temp 98.3; Pulse Ox 95% ; Weight 72.57 kg; Height 5 ft. tw5 4 in. (162.56 cm); Pain 10/10; 23:33 BP 145 / 90; Pulse 84; Resp 15; Pulse Ox 95% on R/A; hb 21:53 Body Mass Index 27.46 (72.57 kg, 162.56 cm) tw5 ED Course: 21:24 Patient arrived in ED. ja2 21:57 Triage completed. tw5 21:57 Arm band placed on. tw5 22:04 Aaron Sheehan MD is Attending Physician. 7 22:15 Patient has correct armband on for positive identification. hb 22:32 Inserted saline lock: 22 gauge in right antecubital area, using aseptic technique. hb ,using aseptic technique. by Priscilla CULVER Blood collected. 22:57 CT Head Brain wo Cont In Process Unspecified. EDMS 22:58 CT Abd/Pelvis - Without Contrast In Process Unspecified. EDMS 23:12 Tib Fib Left XRAY In Process Unspecified. EDMS 23:12 Ankle Left 3 View XRAY In Process Unspecified. EDMS 23:12 Foot Left 3 View XRAY In Process Unspecified. EDMS 23:12 XRAY Chest (1 view) In Process Unspecified. EDMS 23:12 Hip Left 2 View XRAY In Process Unspecified. EDMS 01/04 01:09 Morro Rasmussen is Hospitalizing Provider. [facility] Administered Medications: 01/03 22:38 Drug: Tylenol 1000 mg Route: PO; hb Medication: 22:15 VIS not applicable for this client. hb Outcome: 01/04 01:12 Decision to Hospitalize by Provider. [facility] 09:27 Patient left the ED. mb7 Signatures: Dispatcher [employer] EDFL Pamela Cummings RN RN Aaron Sheehan MD MD 7 Dia Ramos [facility] Lu Hdz 7 Corrections: (The following items were deleted from the chart) 01/03 22:52 22:28 Inserted saline lock: 22 gauge in right antecubital area, using aseptic hb technique. ,using aseptic technique. by Priscilla CULVER Blood collected. hb
--- NOTE | 2022-01-04 01:13 | EDPHYS ---
Physician Documentation [facility] Name: Fausto Johnson Age: 61 yrs Sex: Male : 1960 Arrival Date: 01/03/2022 Time: 21:24 Bed 18 Private MD: ED Physician Aaron Sheehan HPI: 01/03 22:05 This 61 yrs old Male presents to ER via Wheelchair with complaints of Dizziness, Fall mh7 Injury, Ankle Injury. 22:05 The patient presents with dizziness, feeling faint. Onset: The symptoms/episode mh7 began/occurred today. Context: occurred on a street or driveway, occurred while the patient was standing. Modifying factors: The symptoms are alleviated by nothing, the symptoms are aggravated by nothing. Associated signs and symptoms: Pertinent negatives: abdominal pain, agitation, ataxia, blurred vision, chest pain, combativeness, confusion, diaphoresis, focal weakness, headache, nausea, numbness, palpitations, seizure, shortness of breath, tingling, vomiting. Severity of symptoms: At their worst the symptoms were moderate today, in the emergency department the symptoms have improved moderately. Patient's baseline: Neuro: alert and fully oriented, Motor: no deficits, Ambulation: walks without assistance, Speech: normal. 22:05 States that he bent over and got dizzy then fell onto ground. States he felt pain in mh7 left leg and lower back after falling.. Historical: - Allergies: 21:57 NKDA; tw5 - Home Meds: 22:52 Advair Diskus 100-50 mcg/dose Inhl dsdv 1 puff 2 times per day [Active]; albuterol hb sulfate 90 mcg/actuation Inhl aebs 1 puff every 4 hours [Active]; Lasix 20 mg Oral tab 1 tab once daily [Active]; lisinopril 5 mg Oral tab 1 tab once daily [Active]; metoprolol tartrate 50 mg Oral tab 1 tab 2 times per day [Active]; SPERIVA [Active]; - PMHx: 21:57 CHF; Congestive heart failure; COPD; EMPHESEMA; Hypertensive disorder; Bipolar tw5 disorder; ptsd; - Immunization history:: Flu vaccine is not up to date. - Social history:: Smoking status: Patient reports the use of cigarette tobacco products, smokes one-half pack cigarettes per day. ROS: 22:05 Constitutional: Negative for fever, chills, and weight loss, Eyes: Negative for injury, mh7 pain, redness, and discharge, ENT: Negative for injury, pain, and discharge, Neck: Negative for injury, pain, and swelling, Cardiovascular: Negative for chest pain, palpitations, and edema, Respiratory: Negative for shortness of breath, cough, wheezing, and pleuritic chest pain, Abdomen/GI: Negative for abdominal pain, nausea, vomiting, diarrhea, and constipation, : Negative for injury, bleeding, discharge, and swelling, Skin: Negative for injury, rash, and discoloration, Neuro: Negative for headache, weakness, numbness, tingling, and seizure, Psych: Negative for depression, anxiety, suicide ideation, homicidal ideation, and hallucinations, Allergy/Immunology: Negative for hives, rash, and allergies, Endocrine: Negative for neck swelling, polydipsia, polyuria, polyphagia, and marked weight changes, Hematologic/Lymphatic: Negative for swollen nodes, abnormal bleeding, and unusual bruising. Exam: 22:05 Constitutional: This is a well developed, well nourished patient who is awake, alert, mh7 and in no acute distress. Head/Face: Normocephalic, atraumatic. Eyes: Pupils equal round and reactive to light, extra-ocular motions intact. Lids and lashes normal. Conjunctiva and sclera are non-icteric and not injected. Cornea within normal limits. Periorbital areas with no swelling, redness, or edema. ENT: Nares patent. No nasal discharge, no septal abnormalities noted. Tympanic membranes are normal and external auditory canals are clear. Oropharynx with no redness, swelling, or masses, exudates, or evidence of obstruction, uvula midline. Mucous membranes moist. Neck: Trachea midline, no thyromegaly or masses palpated, and no cervical lymphadenopathy. Supple, full range of motion without nuchal rigidity, or vertebral point tenderness. No Meningismus. Chest/axilla: Normal chest wall appearance and motion. Nontender with no deformity. No lesions are appreciated. Cardiovascular: Regular rate and rhythm with a normal S1 and S2. No gallops, murmurs, or rubs. Normal PMI, no JVD. No pulse deficits. 22:05 Abdomen/GI: Soft, non-tender, with normal bowel sounds. No distension or tympany. No guarding or rebound. No evidence of tenderness throughout. 22:05 Skin: Warm, dry with normal turgor. Normal color with no rashes, no lesions, and no evidence of cellulitis. 22:05 Neuro: Awake and alert, GCS 15, oriented to person, place, time, and situation. Cranial nerves II-XII grossly intact. Motor strength 5/5 in all extremities. Sensory grossly intact. Cerebellar exam normal. Normal gait. Psych: Awake, alert, with orientation to person, place and time. Behavior, mood, and affect are within normal limits. 22:05 Respiratory: the patient does not display signs of respiratory distress, Respirations: normal, Breath sounds: rhonchi, that are mild, are scattered, Respiratory rate: 18 22:05 Back: normal spinal alignment noted, CVA tenderness, that is mild, is noted on the left, vertebral tenderness, is not appreciated, muscle spasm, is not present. 22:05 Musculoskeletal/extremity: Extremities: noted in the left lower leg: pain, tenderness, ROM: limited active range of motion due to pain, in the left lower leg, limited passive range of motion due to pain, in the left lower leg, Circulation is intact in all extremities. Sensation intact. Compartment Syndrome exam of affected extremity: is normal. no numbness, no tingling, no sensation deficit, no palor, no weak pulses, Joints: the left ankle displays tenderness, Weight bearing: able to fully bear weight, Tendon exam: specific tendon testing normal through active and passive range of motion Vital Signs: 21:53 BP 103 / 64; Pulse 92; Resp 18; Temp 98.3; Pulse Ox 95% ; Weight 72.57 kg; Height 5 ft. tw5 4 in. (162.56 cm); Pain 10/10; 23:33 BP 145 / 90; Pulse 84; Resp 15; Pulse Ox 95% on R/A; hb 21:53 Body Mass Index 27.46 (72.57 kg, 162.56 cm) tw5 MDM: 01/04 01:08 Differential diagnosis: cardiac arrhythmia, CVA, generalized weakness, hypovolemia, mh7 idiopathic dizziness, syncope. Data reviewed: vital signs, nurses notes, lab test result(s), cardiac enzymes, CBC, electrolytes, EKG, radiologic studies, CT scan, plain films. Data interpreted: Pulse oximetry: on room air is 95 %. Interpretation: normal. Counseling: I had a detailed discussion with the patient and/or guardian regarding: the historical points, exam findings, and any diagnostic results supporting the discharge/admit diagnosis, the presence of at least one elevated blood pressure reading (>120/80) during this emergency department visit, lab results, radiology results, the need for further work-up and treatment in the hospital. Response to treatment: the patient's symptoms have mildly improved after treatment. 01:12 Patient medically screened. [facility] 01/03 22:53 Order name: Basic Metabolic Panel; Complete Time: 23:46 [facility] 01/03 22:53 Order name: Liver (Hepatic) Function; Complete Time: 23:46 [facility] 01/03 22:53 Order name: Troponin High Sensitivity; Complete Time: 23:46 [facility] 01/03 22:53 Order name: NT PRO-BNP; Complete Time: 23:46 [facility] 01/03 22:53 Order name: Magnesium; Complete Time: 23:46 [facility] 01/03 22:53 Order name: CBC with Automated Diff; Complete Time: 23:46 [facility] 01/03 22:53 Order name: Protime (+INR); Complete Time: 23:46 [facility] 01/03 22:16 Order name: XRAY Chest (1 view) [facility] 01/03 22:16 Order name: EKG; Complete Time: 22:22 [facility] 01/03 22:16 Order name: Cardiac monitoring; Complete Time: 22:38 [facility] 01/03 22:16 Order name: EKG - Nurse/Tech; Complete Time: 22:38 [facility] 01/03 22:16 Order name: Tib Fib Left XRAY [facility] 01/03 22:16 Order name: Ankle Left 3 View XRAY [facility] 01/03 22:16 Order name: Foot Left 3 View XRAY [facility] 01/03 22:17 Order name: CT Head Brain wo Cont [facility] 01/03 22:19 Order name: CT Abd/Pelvis - Without Contrast [facility] 01/03 22:19 Order name: Hip Left 2 View XRAY [facility] 01/04 01:28 Order name: COVID-19 SARS RT PCR (Document "Date of Onset" if Symptomatic) [facility] 01/04 03:30 Order name: Urine Dipstick-Ancillary [facility] 01/04 07:32 Order name: SARS-COV-[address] [facility] 01/04 07:40 Order name: Troponin High Sensitivity [facility] 01/03 22:16 Order name: IV Saline Lock; Complete Time: 22:38 [facility] 01/03 22:16 Order name: Labs collected and sent; Complete Time: 22:38 [facility] 01/03 22:16 Order name: O2 Per Protocol; Complete Time: 22:38 [facility] 01/03 22:16 Order name: O2 Sat Monitoring; Complete Time: 22:38 [facility] 01/03 22:19 Order name: Urine Dipstick-Ancillary (obtain specimen); Complete Time: 03:28 [facility] 01/04 01:12 Order name: Splint - Posterior Leg; Complete Time: 02:28 [facility] Administered Medications: 01/03 22:38 Drug: Tylenol 1000 mg Route: PO; Disposition Summary: 01/04/22 01:12 Hospitalization Ordered Hospitalization Status: Inpatient Admission [facility] Provider: Morro Rasmussen Kade Condition: Stable [facility] Problem: new [facility] Symptoms: have improved [facility] Bed/Room Type: Standard [facility] Location: [facility] ER HOLD(01/04/22 01:17) Room Assignment: ERHOLD-(01/04/22 01:17) Diagnosis - Dizziness and giddiness [facility] - Syncope, elevated troponin level [facility] - Type 1 diabetes mellitus with hyperglycemia [facility] - Non displaced left fibula fracture [facility] Forms: - Medication Reconciliation Form [facility] - SBAR form [facility] Signatures: Dispatcher [employer] [facility] Betsy Kern RN RN Pamela Cummings RN RN Aaron Sheehan MD MD 7 Janet Perez 5 Beena Valle PA PA sb3 Corrections: (The following items were deleted from the chart) 01/04 00:01/03 22:54 BASIC METABOLIC PANEL+C.LAB.BRZ ordered. [facility] 01/04 00:01/03 22:54 CBC+H.LAB.BRZ ordered. [facility] 01/04 00:01/03 22:54 HEPATIC FUNCTION+C.LAB.BRZ ordered. [facility] 01/04 00:01/03 22:54 MAGNESIUM+C.LAB.BRZ ordered. [facility] 01/04 00:01/03 22:54 PROBNP+C.LAB.BRZ ordered. EDMS EDMS 01/04 00:36 01/03 22:54 PROTIME (+INR)+COAG.LAB.BRZ ordered. EDMS EDMS 01/04 00:36 01/03 22:54 Troponin High Sensitivity+C.LAB.BRZ ordered. [facility] EDMS 01/04 01:17 01:12 Telemetry/MedSurg (Inpatient) [facility] 01:17 01:12 [facility]
--- NOTE | 2022-01-04 01:38 | P.HP ---
Certification for Inpatient Patient admitted to: Observation With expected LOS: <2 Midnights Patient will require the following post-hospital care: None Practitioner: I am a practitioner with admitting privileges, knowledge of patient current condition, hospital course, and medical plan of care. Services: Services provided to patient in accordance with Admission requirements found in Title 42 Section 412.3 of the Code of Federal Regulations Patient History Date of Service: 01/04/22 Reason for admission: Syncope History of Present Illness: Patient is a 61-year-old male with CHF, COPD, hypertension who presented to the ED with complaints of dizziness/syncope and associated fall injury. He states that he was feeling very weak, he bent over then stood up, got dizzy, and subsequently passed out. He states that he heard a crack in his ankle. He is currently complaining of left ankle pain. Labs significant for creatinine 1.92, WBC 13.6, troponin 68.9, BNP 8000. X-ray showed miniscule oblique fracture of shaft of left fibula without displacement. No fracture or dislocated noted in the ankle. ED provider wishes to admit patient for observation given unexplained syncope and elevated troponin. Of note, patient was discharged from this facility today after undergoing treatment of COPD exacerbation and elevated troponin. His initial troponin was 114 and trended down to 59. He was seen by cardiology, believed the elevation was secondary to demand ischemia, and recommended an outpatient stress test. His was also admitted to the hospital and discharged today. They are currently living out of their car. Allergies No Known Allergies Allergy (Verified 01/02/22 07:07) Home medications list reviewed: Yes Home Medications: Albuterol Neb [Proventil 0.083% Neb Soln] 2.5 mg IH Q6H PRN 01/02/22 Aspirin [Aspirin EC 81 MG] 1 tab PO DAILY 01/02/22 Atorvastatin Calcium 40 mg PO BEDTIME 01/02/22 Buspirone HCl [Buspar] 15 mg PO BID 01/02/22 Clopidogrel Bisulfate [Plavix] 75 mg PO DAILY 01/02/22 Fluoxetine HCl [Prozac] 20 mg PO BEDTIME 01/02/22 Fluticasone/Salmeterol [Advair 250-50 Diskus] 1 each IH BID 01/02/22 Furosemide [Lasix] 40 mg PO BID 01/02/22 Gabapentin 600 mg PO BID 01/02/22 Lisinopril [Zestril] 40 mg PO DAILY 01/02/22 Metoprolol Succinate 25 mg PO BEDTIME 01/02/22 Quetiapine Fumarate [Seroquel] 50 mg PO BEDTIME 01/02/22 predniSONE [Deltasone*] 10 mg PO BID #20 tab 01/03/22 - Past Medical/Surgical History Diabetic: No -: Hypertension -: COPD -: CHF -: Bipolar -: Emphysema -: Appendectomy Psychosocial/ Personal History: Patient is . - Social History Smoking Status: Current every day smoker Alcohol use: No CD- Drugs: Yes Caffeine use: No Place of Residence: Home Review of Systems General: As per HPI Musculoskeletal: Leg Pain Physical Examination - Physical Exam General: Alert, In no apparent distress HEENT: Atraumatic, PERRLA, EOMI, Sclerae nonicteric Neck: Supple, 2+ carotid pulse no bruit, No LAD, Without JVD or thyroid abnormality Respiratory: Clear to auscultation bilaterally, Normal air movement Cardiovascular: Regular rate/rhythm, Normal S1 S2 Gastrointestinal: Normal bowel sounds, No tenderness Musculoskeletal: Swelling, Cast in place Integumentary: No rashes Neurological: Normal speech, Normal strength at 5/5 x4 extr, Normal tone, Normal affect - Studies Laboratory Data (last 24 hrs) 01/03/22 22:30: PT 11.8, INR 1.07 01/03/22 22:30: WBC 13.6 H D, Hgb 13.1 L, Hct 39.3 L, Plt Count 254 01/03/22 22:30: Sodium 138, Potassium 4.0, BUN 65 H, Creatinine 1.92 H, Glucose 238 H, Magnesium 2.4, Total Bilirubin 0.3, AST 30, ALT 40, Alkaline Phosphatase 70 01/03/22 22:16: PT Cancelled, INR Cancelled 01/03/22 22:16: WBC Cancelled, Hgb Cancelled, Hct Cancelled, Plt Count Cancelled 01/03/22 22:16: Sodium Cancelled, Potassium Cancelled, BUN Cancelled, Creatinine Cancelled, Glucose Cancelled, Magnesium Cancelled, Total Bilirubin Cancelled, AST Cancelled, ALT Cancelled, Alkaline Phosphatase Cancelled Assessment and Plan - Problems (Diagnosis) (1) COPD (chronic obstructive pulmonary disease) Current Visit: Yes Status: Chronic Qualifiers: COPD type: emphysema (2) Syncope Current Visit: Yes Status: Acute Qualifiers: Syncope type: unspecified Qualified Code(s): R55 - Syncope and collapse (3) Fibula fracture Current Visit: Yes Status: Acute Qualifiers: Encounter type: initial encounter Fibula location: shaft Fracture type: c losed Fracture morphology: oblique Fracture alignment: nondisplaced Laterality: left Qualified Code(s): S82.435A - Nondisplaced oblique fracture of shaft of left fibula, initial encounter for closed fracture (4) CHF (congestive heart failure) Current Visit: Yes Status: Chronic Qualifiers: Heart failure type: diastolic Heart failure chronicity: acute on chronic Qualified Code(s): I50.33 - Acute on chronic diastolic (congestive) heart failure (5) Hypertension Current Visit: Yes Status: Chronic Qualifiers: Hypertension type: primary hypertension Qualified Code(s): I10 - Essential (primary) hypertension (6) Tobacco abuse Current Visit: Yes Status: Chronic - Plan -Patient admitted for observation -Splint placed on left ankle in the ED as patient is complaining of left ankle pain -Cause of syncope could be secondary to heat/dehydration as patient is homeless. fast food services manager consult in place -Trend troponin. Cardiology suggested demand ischemia. -Monitor and replete electrolytes per protocol -Reconcile and continue home medications -Lovenox for VTE ppx -Full code Discharge Plan: Home Plan to discharge in: 24 Hours - Advance Directives Does patient have a Living Will: No Does patient have a Durable POA for Healthcare: No - Code Status/Comfort Care Code Status Assessed: Yes (Full) Critical Care: No Time Spent Managing Pts Care (In Minutes): 50
[2022-01-04] MEDS ORDERED: QUETIAPINE 25 MG TAB ONE (02:56)
[2022-01-04] MEDS ORDERED: NA CHLORIDE 0.9% 500 ML IV SCH (03:00)
[2022-01-04 03:30] LABS: Urine Blood Negative (Negative); Urine Glucose Negative (Negative); Urine Protein Negative (Negative); Urine pH 5.5 (5.0-7.0)
[2022-01-04] MEDS ORDERED: ACETAMINOPHEN 500 MG TAB PO PRN (06:22)
[2022-01-04] MEDS ORDERED: MORPHINE 2 MG/ML SYR IV PRN (06:22)
[2022-01-04] MEDS ORDERED: ALBUTEROL 2.5 MG/3 ML NEB SOL NEB PRN (06:22)
[2022-01-04] MEDS ORDERED: ONDANSETRON 4 MG/2 ML VIAL IV PRN (06:22)
[2022-01-04 06:38] VITALS: BMI 31.6
[2022-01-04] MEDS ORDERED: ENOXAPARIN 40 MG/0.4 ML SQ SCH (09:00)
[2022-01-04 10:01] VITALS: TEMP 98.3; O2SAT 95
[2022-01-04 10:16] VITALS: BP 145/90
--- NOTE | 2022-01-04 22:38 | RAD REPORT ---
EXAM DESCRIPTION: RAD - Chest Single View - 01/03/2022 11:10 pm CLINICAL HISTORY: The patient is 61 years old and is Male; dizziness TECHNIQUE: Frontal view of the chest. COMPARISON: January 02, 2022. FINDINGS: Lungs: Prominent interstitial markings which may indicate mild interstitial edema or chr onic changes. No consolidation. Pleural space: Unremarkable. No pneumothorax. Heart: Unremarkable. Mediastinum: Unremarkable. Bones/joints: Unremarkable. IMPRESSION: Prominent interstitial markings which may indicate mild interstitial edema or chronic ch anges. No consolidation. Electronically signed by: Fausto Shah MD 01/03/2022 11:59 PM CDT Due to temporary technical issues with the PACS/Fluency reporting system, reports are being signed by the in house radiologists without review as a courtesy to insure prompt reporting. The interpreting radiologist is fully responsible for the content of the report.
--- NOTE | 2022-01-04 22:40 | RAD REPORT ---
EXAM DESCRIPTION: CT - Head Brain Wo Cont - 01/04/2022 2:28 am CLINICAL HISTORY: 61 years Male Dizziness, non-specific COMPARISON: None TECHNIQUE: Images were obtained in axial, sagittal, and coronal planes. This exam was performed according to our departmental dose-optimization program which includes use of Automated Exposure Control, adjustment of the mA and/or kV according to patient size and/or use of iterative reconstruction technique. FINDINGS: Ventricular system is moderately enlarged. Moderate prominence of the cortical sulci. Decr eased attenuation right frontotemporoparietal region consistent with more remote infarct and encephal omalacia. Additional decreased attenuation occipital lobes bilaterally left greater than right consis tent with more remote infarct and encephalomalacia. No abnormal areas of increased attenuation seen. No extra-axial fluid collections noted. No evidence for skull fracture. Sclerotic changes mastoid air cells bilaterally. Unremarkable paranas al sinuses. IMPRESSION: No acute intracranial abnormality. No evidence for hemorrhage, mass lesion, or large acu te infarction. 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 Electronically signed by: Blessing Sosa MD 01/03/2022 11:55 PM CDT Due to temporary technical issues with the PACS/Fluency reporting system, reports are being signed by the in house radiologists without review as a courtesy to insure prompt reporting. The interpreting radiologist is fully responsible for the content of the report.
--- NOTE | 2022-01-04 22:41 | RAD REPORT ---
EXAM DESCRIPTION: RAD - Tib Fib Left - 01/03/2022 c11:10 pm CLINICAL HISTORY: 61-year-old male status post fall. TECHNIQUE: Three views LEFT foot were obtained in AP, lateral and oblique projections. Three views LEFT ankle were obtained in AP, lateral and oblique projections. Two views of the LEFT tibia-fibula obtained in AP and lateral projection. COMPARISON: None. FINDINGS: LEFT foot: There is no fracture or dislocation. The joint spaces are preserved. No soft tissue abnormalities are seen. LEFT ankle: There is no fracture or dislocation. The joint spaces are preserved. Mild lateral malle olar soft tissue swelling. Achilles tendon enthesophyte. Plantar heel spur. LEFT tibia-fibula: Nondisplaced oblique fracture of the proximal mid diaphysis of the fibula. The j oint spaces are preserved. No soft tissue abnormalities are seen. IMPRESSION: 1. Nondisplaced oblique fracture of the mid diaphysis of the fibula. 2. Mild lateral malleolar soft tissue swelling without fracture or dislocation. Electronically signed by: Kimber Ca MD 01/04/2022 12:02 AM CDT Due to temporary technical issues with the PACS/Fluency reporting system, reports are being signed by the in house radiologists without review as a courtesy to insure prompt reporting. The interpreting radiologist is fully responsible for the content of the report.
--- NOTE | 2022-01-04 22:46 | RAD REPORT ---
EXAM DESCRIPTION: CT - Abdomen Pelvis Wo Contrast - 01/04/2022 2:27 am CLINICAL HISTORY: 61 years Male Flank pain, no prior imaging COMPARISON: None TECHNIQUE: Images were obtained in axial, sagittal, and coronal planes. No intravenous or oral contr ast was administered. This exam was performed according to our departmental dose-optimization program which includes use of Automated Exposure Control, adjustment of the mA and/or kV according to patient size and/or use of iterative reconstruction technique. FINDINGS: No abnormality involving the liver, spleen, pancreas, gallbladder, and adrenal glands bila terally. No obstructing renal or ureteral calculi bilaterally. Punctate nonobstructing calcification inferior right kidney. No hydronephrosis bilaterally. Unremarkable bladder. Enlarged prostate gland. Appendix not well identified however no secondary signs for appendicitis.. No bowel obstruction, perf oration, or inflammation. Enlarged heart. Mild airspace attenuation posterior lungs bilaterally likely atelectatic change. No acute osseous abnormality. No dilatation abdominal aorta. No adenopathy or abnormal fluid collections seen. Small periumbilical hernia which contains only mesenteric fat. IMPRESSION: No acute intra-abdominal abnormality.. Electronically signed by: Blessing Sosa MD 01/04/2022 12:00 AM CDT Due to temporary technical issues with the PACS/Fluency reporting system, reports are being signed by the in house radiologists without review as a courtesy to insure prompt reporting. The interpreting radiologist is fully responsible for the content of the report.
--- NOTE | 2022-01-04 22:49 | RAD REPORT ---
EXAM DESCRIPTION: RAD - Hip Left 2 View - 01/03/2022 11:10 pm CLINICAL HISTORY: 61-year-old male status post fall. TECHNIQUE: Three views LEFT hip were obtained in AP, and lateral projections. COMPARISON: None. FINDINGS: There is no fracture or dislocation. The joint spaces are preserved. No soft tissue abnorm alities are seen. IMPRESSION: No acute radiographic abnormality. Electronically signed by: Kimber Ca MD 01/04/2022 12:06 AM CDT Due to temporary technical issues with the PACS/Fluency reporting system, reports are being signed by the in house radiologists without review as a courtesy to insure prompt reporting. The interpreting radiologist is fully responsible for the content of the report.
--- NOTE | 2022-01-04 22:51 | RAD REPORT ---
EXAM DESCRIPTION: RAD - Ankle Left 3 View - 01/03/2022 11:10 pm CLINICAL HISTORY: 61-year-old male status post fall. TECHNIQUE: Three views LEFT foot were obtained in AP, lateral and oblique projections. Three views LEFT ankle were obtained in AP, lateral and oblique projections. Two views of the LEFT tibia-fibula obtained in AP and lateral projection. COMPARISON: None. FINDINGS: LEFT foot: There is no fracture or dislocation. The joint spaces are preserved. No soft tissue abnormalities are seen. LEFT ankle: There is no fracture or dislocation. The joint spaces are preserved. Mild lateral malle olar soft tissue swelling. Achilles tendon enthesophyte. Plantar heel spur. LEFT tibia-fibula: Nondisplaced oblique fracture of the proximal mid diaphysis of the fibula. The j oint spaces are preserved. No soft tissue abnormalities are seen. IMPRESSION: 1. Nondisplaced oblique fracture of the mid diaphysis of the fibula. 2. Mild lateral malleolar soft tissue swelling without fracture or dislocation. Electronically signed by: Kimber Ca MD 01/04/2022 12:03 AM CDT Due to temporary technical issues with the PACS/Fluency reporting system, reports are being signed by the in house radiologists without review as a courtesy to insure prompt reporting. The interpreting radiologist is fully responsible for the content of the report.
--- NOTE | 2022-01-05 16:57 | EKG ---
Test Date: 2022-01-03 Test Time: 22:27:46 Charge Preparation Technician: HB MEASUREMENT RESULTS: Intervals: Rate: 87 MD: 182 QRSD: 90 QT: 386 QTc: 464 [place]: P: 61 MD: 182 QRS: -16 T: 39 INTERPRETIVE STATEMENTS: Sinus rhythm with occasional premature ventricular complexes Possible Left atrial enlargement Inferior infarct, age undetermined Possible Anterior infarct, age undetermined Abnormal ECG Compared to ECG 01/02/2022 02:10:51 Ventricular premature complex(es) now present Left anterior fascicular block no longer present Myocardial infarct finding still present Electronically Signed On 01-05-22 16:57:03 CDT by Miah Sullivan
--- NOTE | 2022-01-06 12:27 | EKG ---
Test Date: 2022-01-03 Test Time: 22:29:58 Golf Sales Associate: HB MEASUREMENT RESULTS: Intervals: Rate: 90 ND: 190 QRSD: 88 QT: 374 QTc: 457 [place]: P: 47 ND: 190 QRS: -19 T: 21 INTERPRETIVE STATEMENTS: Sinus rhythm with occasional premature ventricular complexes Possible Left atrial enlargement Inferior infarct, age undetermined Possible Anterior infarct, age undetermined Abnormal ECG Compared to ECG 01/03/2022 22:27:46 No significant changes Electronically Signed On 01-06-22 12:24:14 CDT by Miah Sullivan
== END 2022-01-04 09:18 | disposition left against medical advice (07) ==
LOC: ER 21:23 → ERHOLD 01-04 01:27
PROVIDERS: ADMIT Internal Medicine Sleep Medicine; ATTEND Hospitalist
DX: R55 Syncope and collapse (principal); J44.1 Chronic obstructive pulmonary disease with (acute) exacerbation; R77.8 Other specified abnormalities of plasma proteins; Z53.29 Procedure and treatment not carried out because of patient's decision for other reasons; S82.435A Nondisplaced oblique fracture of shaft of left fibula, initial encounter for closed fracture; W19.XXXA Unspecified fall, initial encounter; Y92.410 Unspecified street and highway as the place of occurrence of the external cause; I11.0 Hypertensive heart disease with heart failure; I50.33 Acute on chronic diastolic (congestive) heart failure; F31.9 Bipolar disorder, unspecified; E10.65 Type 1 diabetes mellitus with hyperglycemia; F17.210 Nicotine dependence, cigarettes, uncomplicated; Z59.02 Unsheltered homelessness; Z20.822 Contact with and (suspected) exposure to COVID-19; Z79.82 Long term (current) use of aspirin; Z79.02 Long term (current) use of antithrombotics/antiplatelets; Z79.52 Long term (current) use of systemic steroids; Z79.899 Other long term (current) drug therapy
CPT/HCPCS: 36415; 70450; 71045; 74176; 80048; 80076; 81003; 83735; 83880; 84484; 85025; 85610; 93005; 99284; G0378; U0003

== ENCOUNTER 2022-01-14 15:37 | Emergency (ER) | payer SELFPAY ==
--- OUTSIDE RECORDS SUMMARY | 2022-01-14 15:58 | XMS REPORT | Continuity of Care Document ---
:1960 Author Organization [facility] t Address [address] [place] [address] Care Team Providers Name Role Phone Pcp, Patient Does Not Have A Primary Care Physician +[id number] MARGOT PRYOR Attending Clinician Unavailable EBONY BAGLEY Attending Clinician Unavailable Ebony Bagley MD Attending Clinician Lakeisha Katz Attending Clinician LAKEISHA CALDERON Attending Clinician Unavailable EBONY BAGLEY Admitting Clinician Unavailable Problems Condition Condition Condition Status Onset Resolution Last Treating Co mments Source Name Details Category Date Date Treatment Clinician Date Closed Closed Disease Active Univers fracture fracture 07 ity of of left of left 00:00: [place] ankle with ankle with 00 Me dical routine routine Branch healing, healing, subsequent subsequent encounter encounter No known No known Disease Unive rs active active ity of problems problems [place] [facility] Allergies, Adverse Reactions, Alerts Allergy Allergy Status Severity Reaction(s) Onset Inactive Treating Comm ents Source Name Type Date Date Clinician NO KNOWN Drug Active Univers ALLERGIE Class ity of S [place] [facility] Social History Social Habit Start Date Stop Date Quantity Comments Source Exposure to 2022-01-02 2022-01-12 Not sure [facility] SARS-CoV-2 (event) 00:00:00 20:30:00 Medica l Branch Sex Assigned At [birth year] [facility] [place] 00:[facility]:00 00:00:00 Medical Branch Smoking Status Start Date Stop Date Source Tobacco smoking consumption Univ [facility] Medical unknown Branch Medications Ordered Filled Start Stop Current Ordering Indication Dosage Frequency Signature Comments Components Source Medication Medication Date Date Medication? Clinician (SIG) Name Name amoxicillin 0 Yes [id number] 500mg Take 1 Univers 500 mg 7-04 capsule by ity of capsule 00:00: mouth 3 00 (three) Medical times Branch daily. azithromyci 0 Yes [id number] 250mg Take 1 Univers n 7-04 tablet by ity of (ZITHROMAX 00:00: mouth [place] Z-HANNAH) 250 00 SEE-INSTRU Med ical mg tablet CTIONS. Branch Take 500 mg day 1, then 250 mg days 2 to 5. benzonatate 2021-0 Yes [id number] 100mg Take 1 Univers 100 mg 7-04 capsule by ity of capsule 00:00: mouth 3 00 (three) Medical times Branch daily as needed for Cough. amoxicillin Yes [id number] 500mg Take 1 Univers 500 mg 7-04 capsule by ity of capsule 00:00: mouth 3 00 (three) Medical times Branch daily. azithromyci 0 Yes [id number] 250mg Take 1 Univers n 7-04 tablet by ity of (ZITHROMAX 00:00: mouth [place] Z-HANNAH) 250 00 SEE-INSTRU Med ical mg tablet CTIONS. Branch Take 500 mg day 1, then 250 mg days 2 to 5. benzonatate 2021-0 Yes [id number] 100mg Take 1 Univers 100 mg 7-04 capsule by ity of capsule 00:00: mouth 3 00 (three) Medical times Branch daily as needed for Cough. ALBUTEROL 2019-0 Yes Inhale. Unive rs INHALE 8- ity of 19:11: [place] 55 Medical Branch buspirone 2020-0 Yes Take by Unive rs HCl (BUSPAR 8-04 mouth. ity of ORAL) 19:11: [place] 29 Medical Branch trazodone 2020-0 Yes Take by Unive rs HCl 8- mouth. ity of (TRAZODONE 19:11: [place] ORAL) 29 Medical Branch atorvastati 2019-0 2020- No Take by Un mary n calcium 8-04 08- mouth. ity of (ATORVASTAT 19:11: 00:00 [place] IN ORAL) 15 :00 Medical Branch quetiapine 2020-0 Yes Take by Univ ers fumarate 8-04 mouth. ity of (SEROQUEL 18:10: [place] ORAL) 19 [facility] GABAPENTIN 2020-0 Yes Take by [facility] ers ORAL 8-04 mouth. ity of 18:10: [place] 19 [facility] Branch fluoxetine 2020-0 Yes Take by [facility] ers HCl (PROZAC 8- mouth. ity of ORAL) 18:10: [place] 19 [facility] amlodipine 2019-0 Yes Take by [facility] ers besylate 8-04 mouth. ity of (AMLODIPINE 18:09: [place] ORAL) 24 [facility] LISINOPRIL 2019-0 Yes Take by [facility] ers ORAL 8-04 mouth. ity of 18:09: [address] NaCl 0.9% 2020-0 2020- No 1000mL at 999 Uni vers (NS) bolus 01-09 mL/hr, ity of infusion 17:00: 17:24 1,000 mL, Rufino as 1,000 mL 00 :00 IV Medical Infusion, Branch ONCE, 1 dose, 01/10/20 at 1200, STAT ondansetron 2019-0 2020- No 4mg 4 mg, Slow Univers (ZOFRAN 01-09 IV Push, ity of (PF)) 17:00: 16:12 ONCE, 1 [place] injection 4 00 :00 dose, Tue Med ical mg 01/10/20 at Branch 1200, WILEY morpHINE 2019-0 2020- No 4mg 4 mg, Slow Un mary injection 4 01-09 IV Push, ity of mg 17:00: 16:13 ONCE, 1 [place] 00 :00 dose, Tue Medical 01/10/20 at Branch 1200, STAT iohexol 2020-0 2020- No 120mL 120 mL, Unive rs (OMNIPAQUE 01-09 Intravenou it y of 350 16:50: 16:50 s, ONCE, 1 [place] BULK-150 00 :00 dose, Tue Medica l mL) 01/10/20 at Branch injection 1215, 120 mL Routine ALBUTEROL 2020-0 Yes Inhale. Unive rs INHALE 8- ity of 14:11: [address] ALBUTEROL 2020-0 Yes Inhale. Unive rs INHALE 8- ity of 14:11: [address] buspirone 2020-0 Yes Take by Unive rs HCl (BUSPAR 8- mouth. ity of ORAL) 14:11: [place] 29 Medical Branch trazodone 2020-0 Yes Take by Unive rs HCl 8-04 mouth. ity of (TRAZODONE 14:11: [place] ORAL) 29 Medical Branch buspirone 2020-0 Yes Take by Unive rs HCl (BUSPAR 8-04 mouth. ity of ORAL) 14:11: [place] [address] Medical Branch trazodone 2020-0 Yes Take by Unive rs HCl 8-04 mouth. ity of (TRAZODONE 14:11: [place] ORAL) 29 Medical Branch quetiapine 2020-0 Yes Take by Univ ers fumarate 8-04 mouth. ity of (SEROQUEL 13:10: [place] ORAL) 19 Medical Branch GABAPENTIN 2020-0 Yes Take by Univ ers ORAL 8-04 mouth. ity of 13:10: [place] [address] Medical Branch fluoxetine 2020-0 Yes Take by Univ ers HCl (PROZAC 8-04 mouth. ity of ORAL) 13:10: [place] [address] Medical Branch quetiapine 2020-0 Yes Take by Univ ers fumarate 8-04 mouth. ity of (SEROQUEL 13:10: [place] ORAL) 19 Medical Branch GABAPENTIN 2020-0 Yes Take by Univ ers ORAL 8-04 mouth. ity of 13:10: [place] [address] Medical Branch fluoxetine 2020-0 Yes Take by Univ ers HCl (PROZAC 8-04 mouth. ity of ORAL) 13:10: [place] [address] Medical Branch LISINOPRIL 2020-0 Yes Take by Univ ers ORAL 8-04 mouth. ity of 13:09: [address] Branch amlodipine 2020-0 Yes Take by Univ ers besylate 8-04 mouth. ity of (AMLODIPINE 13:09: [place] ORAL) 24 Medical Branch LISINOPRIL 2020-0 Yes Take by Univ ers ORAL 8-04 mouth. ity of 13:09: [place] [address] Medical Branch amlodipine 2020-0 Yes Take by Univ ers besylate 8-04 mouth. ity of (AMLODIPINE 13:09: [place] ORAL) 24 [facility] Vital Signs Vital Name Observation Time Observation Value Comments Source Systolic blood 2022-01-13 01:32:00 144 mm[Hg] Univer sity of pressure [facility] Diastolic blood 2022-01-13 01:32:00 89 mm[Hg] Unive rsity of pressure [facility] Heart rate 2022-01-13 01:32:00 92 /min Universi ty of [place] [facility] Body temperature 2022-01-13 01:32:00 37.28 Ruth Ann Univ ersity of [place] [facility] Respiratory rate 2022-01-13 01:32:00 20 /min Univ ersity of [place] [facility] Body height 2022-01-13 01:32:00 162.6 cm Universi ty of [place] [facility] Body weight 2022-01-13 01:32:00 72.576 kg Universi ty of [place] [facility] BMI 2022-01-13 01:32:00 27.46 kg/m2 Universi ty of [place] [facility] Oxygen saturation in 2022-01-13 01:32:00 95 /min University of Arterial blood by [facility] Pulse oximetry Branch Systolic blood 2021-12-09 16:32:00 131 mm[Hg] Univer sity of pressure [place] [facility] Diastolic blood 2021-12-09 16:32:00 71 mm[Hg] Unive rsity of pressure [place] [facility] Heart rate 2021-12-09 16:32:00 94 /min Universi ty of [place] [facility] Body temperature 2021-12-09 16:32:00 37.44 Ruth Ann Univ ersity of [place] [facility] Respiratory rate 2021-12-09 16:32:00 18 /min Univ ersity of [place] [facility] Body weight 2021-12-09 16:32:00 77.111 kg Universi ty of [place] [facility] BMI 2021-12-09 16:32:00 29.18 kg/m2 Universi ty of [place] [facility] Oxygen saturation in 2021-12-09 16:32:00 97 /min University of Arterial blood by [facility] Pulse oximetry Branch Respiratory rate 2020-01-10 18:00:00 16 /min Univ ersity of [place] [facility] Oxygen saturation in 2020-01-10 18:00:00 94 /min University of Arterial blood by [facility] Pulse oximetry Branch Systolic blood 2020-01-10 18:00:00 124 mm[Hg] Univer sity of pressure [place] [facility] Diastolic blood 2020-01-10 18:00:00 89 mm[Hg] Unive rsity of pressure [place] [facility] Heart rate 2020-01-10 18:00:00 68 /min Universi ty of [place] [facility] Body temperature 2020-01-10 15:22:00 36.67 Ruth Ann [facility] Body height 2020-01-10 15:22:00 162.6 cm [facility] Body weight 2020-01-10 15:22:00 77.111 kg [facility] BMI 2020-01-10 15:22:00 29.18 kg/m2 [facility] Procedures Procedure Date / Time Performed Performing Clinician Sourc e NOTICE OF PRIVACY 2022-01-13 01:25:09 Doctor Unassigned, No Univ ersity [facility] Name Medical Branch CONSENT/REFUSAL FOR 2022-01-13 01:24:14 Doctor Unassigned, No Un iversity of [place] DIAGNOSIS AND Name Medical Branch TREATMENT URINALYSIS 2021-12-09 17:39:00 Markel [facility] XR CHEST 2 VW 2021-12-09 17:13:00 [facility] COVID-19 (ID NOW RAPID 2021-12-09 17:03:00 Ebony Bagley [facility] TESTING) Medical Branch CONSENT/REFUSAL FOR 2021-12-09 16:30:04 Doctor Unassigned, No Un iversity of [place] DIAGNOSIS AND Name Medical Branch TREATMENT NOTICE OF PRIVACY 2021-12-09 16:18:29 [facility] 2020-01-10 17:30:00 Lakeisha Calderon [facility] CT ABDOMEN PELVIS W 2020-01-10 17:00:39 Lakeisha Calderon [facility] CONTRAST Medical Branch LIPASE 2020-01-10 15:55:00 Lakeisha Calderon [facility] COMP. METABOLIC PANEL 2020-01-10 15:55:00 Lakeisha Calderon [facility] ([id number]) Medical Branch CBC WITH DIFF 2020-01-10 15:55:00 Lakeisha Calderon [facility] NOTICE OF PRIVACY 2020-01-10 15:17:33 [facility] CONSENT/REFUSAL FOR 2020-01-10 15:17:19 Doctor Unassigned, No Un iversity of [place] DIAGNOSIS AND Name Medical Branch TREATMENT Encounters Start End Encounter Admission Attending Care Care Encounter Source Date/Time Date/Time Type Type Clinicians Facility Department ID 2022-01-12 2022-01-12 Emergency [facility] [id number] Univers 20:30:00 21:02:00 MARGOT [facility] 2022-01-12 2022-01-12 Emergency Corrine [facility] [id number] Univers 20:30:00 21:02:00 Margot PHELAN [id number] i ty [facility] [id number] [facility] [id number] [address] 2021-12-09 2021-12-09 Emergency [facility] [id number] Univers 11:35:00 13:31:00 EBONY [facility] 2021-12-09 2021-12-09 Emergency [facility] [id number] Univers 11:35:00 13:31:00 Ebony PHELAN [id number] i ty [facility] [id number] [facility] [id number] [address] 2020-01-10 2020-01-10 Emergency [facility] [id number] Univers 10:24:00 14:29:00 Lakeisha Phelan [id number] i ty of [place] [id number] [facility] [id number] [address] 2020-01-10 2020-01-10 Emergency [facility] ERT [id number] Univers 10:24:00 10:24:00 [facility] Results Test Description Test Time Test Comments Results Result Comments Source URINALYSIS 2020-01-10 18:06:00 Test Item Value Reference Range Interpretation Comme nts APPEARANCE (test code = Clear Clear 3689194925) COLOR (test code = 5196495484) Yellow Yellow PH (test code = 8533630510) 4.8-8.0 SP GRAVITY (test code = 1.003-1.030 H 5588611539) GLU U QUAL (test code = Normal Normal 1831894641) BLOOD (test code = 8704172174) Negative Negative KETONES (test code = 8168910988) Negative Negative PROTEIN (test code = 2887-8) Negative Negative UROBILIN (test code = Normal Normal 8055224691) BILIRUBIN (test code = Negative Negative 4853781945) NITRITE (test code = 7472119679) Negative Negative LEUK KIERSTEN (test code = 25/uL Negative A 6319207732) RBC/HPF (test code = 3372105202) See_Comment [Automated message] The system which Rapid RMS nerated this result transmit suraj reference range: 0 - 3 HP F. The reference range was not used to interpret th is result as normal/abnormal . WBC/HPF (test code = 8833630920) See_Comment H [Automated message] The system which ge nerated this result transmit suraj reference range: 0 - 5 HP F. The reference range was not used to interpret th is result as normal/abnormal . BACTERIA (test code = Negative Negative 9400851424) MUCOUS (test code = 3529599115) Slight Negative LPF A SQ EPITH (test code = <1 HPF 6573062782) Lab Interpretation (test code = Abnormal 39696-2) [facility] W [id number] 17:18:24CT Abdomen and Pelvis with intravenous contrast. CLINICAL HISTORY: Acute generalized abdominal pain.DOSE: Up-to-date CT equipment and radiation dose reduction techniques wereemployed. CTDIvol: 8.10 mGy. DLP: 414 mGy-cm. TECHNIQUE : Contiguous axial imaging from the level of the lung basesthrough the pubic symphysis were performed after the uncomplicatedadministration of Omnipaque contrast material. Coronal and sagittalreconstructions were obtained. Auto mA and/or iterative reconstruction wereused to reduce radiation dose. FINDINGS: ? Lower lungs: 2 calcified granulomas in right lower lung. No pleuraleffusion or pericardial effusion. Short sliding hiatal hernia suspected. Liver, Gallbladder and Spleen: Unremarkable. Peritoneum: ?No free air or free fluid. No lymphadenopathy. Pancreas and Adrenals: ?Unremarkable pancreas and left adrenal gland. 18 mmtumor in the right adrenal gland with heterogeneous tissue densities. Kidneys and Ureters: ?No visible calculi in the renal collecting systems. No hydroureter or hydronephrosis. Cortical scar noted in the posteriorupper right kidney which could be due to remote infection. Vessels: Tortuous iliac vessels with mild atherosclerosis. Retroperitoneum: No abnormal fluid or lymphadenopathy. Bowel: Moderate diverticulosis of the sigmoid/distal descending colon withadditional diverticula scattered through rest of large bowel noted withoutany acute changes. Appendix is not visualized but no signs of acuteappendicitis detected. Small bowel gas pattern appears nonobstructive. Bladder and Reproductive Organs: Mild enlargement of the prostate gland issuspected. No gross pathology in the unopacified urinary bladder. Bones: Probable old trauma to posterior left ninth rib. Exaggerated lumbarlordosis with degenerative disc disease at L4-L5. Bone island noted in theneck of the right femur. Soft tissues: Small inguinal hernia with bladder wall protruding into it sproximal opening, slightly more on the right side. Next Multiple small fat- containing ventral midline abdominal wall herniasincluding fat-containing umbilical hernia. Atrophy of portions of rightrectus muscle could be due to old surgical trauma. CONCLUSION:1. No acute intra-abdominal or pelvic abnormalities detected.2. 18 mm right adrenal gland tumor, unknown etiology but could be anincidental benign nonfunctioning adenoma. [facility] Inft User - 01/10/2020 12:19 PM CDTCT Abdomen and Pelvis with intravenous contrast.CLINICAL HISTORY: Acute generalized abdominal pain.DOSE: Up-to-date CT equipment and radiation dose reduction techniques wereemployed. CTDIvol: 8.10 mGy. DLP: 414 mGy-cm.TECHNIQUE : Contiguous axial imaging from the level of the lung basesthrough the pubic symphysis were performed after the uncomplicatedadministration of Omnipaque contrast material. Coronal and sagittalreconstructions were obtained. Auto mA and/or iterative reconstruction wereused to reduce radiation dose.FINDINGS: Lower lungs: 2 calcified granulomas in right lower lung. No pleuraleffusion or pericardial effusion. Short sliding hiatal hernia suspected.Liver, Gallbladder and Spleen: Unremarkable.Peritoneum: No free air or free fluid. No lymphadenopathy.Pancreas and Adrenals: Unremarkable pancreas and left adrenal gland. 18 mmtumor in the right adrenal gland with heterogeneous tissue densities.Kidneys and Ureters: No visible calculi in the renal collecting systems. No hydroureter or hydronephrosis. Cor tical scar noted in the posteriorupper right kidney which could be due to remote infection. Vessels:Tortuous iliac vessels with mild atherosclerosis.Retroperitoneum: No abnormal fluid or lymphadenopathy.Bowel: Moderate diverticulosis of the sigmoid/distal descending colon withadditional diverticula scattered through rest of large bowel noted withoutany acute changes. Appendix is not visualized but no signs of acuteappendicitis detected. Small bowel gas pattern appears nonobstructive.Bladder and Reproductive Organs: Mild enlargement of the prostate gland issuspected. No gross pathology in the unopacified urinary bladder.Bones: Probable old trauma to posterior left ninth rib. Exaggerated lumbarlordosis with degenerative disc disease at L4-L5. Bone island noted in theneck of the right femur.Soft tissues: Small inguinal hernia with bladder wall protruding into itsproximal opening, slightly more on the right side. NextMultiple small fat-containing ventral midline abdominal wall herniasincluding fat-containing umbilical hernia. Atrophy of portions of rightrectus muscle could be due to old surgical trauma.CONCLUSION:1. No acute intra-abdominal or pelvic abnormalities detected.2. 18 mm right adrenalgland tumor, unknown etiology but could be anincidental benign nonfunctioning adenoma. [facility]. METABOLIC PANEL ([id number])2020-01-10 16:17:00 Test Item Value Reference Range Interpretation Comments NA (test code = 139 mmol/L 135-145 3028367929) K (test code = 4.4 mmol/L 3.5-5 6922193749) CL (test code = 108 mmol/L 98-108 5121897343) CO2 TOTAL (test code = 22 mmol/L 23-31 L 8729655622) AGAP (test code = 2-16 0214416267) BUN (test code = 32 mg/dL 7-23 H 4170389440) GLUCOSE (test code = 109 mg/dL 70-110 8594796699) CREATININE (test code = 1.11 mg/dL 0.6-1.25 0543542251) TOTAL BILI (test code = 0.6 mg/dL 0.1-1.0 0545428574) CALCIUM (test code = 9.0 mg/dL 8.6-10.6 4495087828) T PROTEIN (test code = 8.6 g/dL 6.3-8.2 H 7330739243) ALBUMIN (test code = 4.5 g/dL 3.5-5 3526684977) ALK PHOS (test code = 78 U/L 34-122 9069984110) ALTv (test code = 47 U/L 5-50 1742-6) AST(SGOT) (test code = 49 U/L 13-40 H 0484734039) eGFR Calculation mL/min/1.73m2 (Non-) (test code = 8355978538) eGFR Calculation mL/min/1.73m2 () (test code = 1036263263) RAMYA (test code = RAMYA) Association of Glomerular Filtration Rate (GFR) and Staging of Kidney Disease* + --+ --+ ------+| GFR (mL/min/1.73 m2) ?| With Kidney Damage ?| ?Without Kidney Damage+ --------+ --------+ +| ?>90 ?| ?Stage one ?| ? Normal ?+ ---+ ---+ -------+| ?60-89 ?| ?Stage two ?| ? Decreased GFR ? + --+ --+ ------+| ?30-59 ?| ?Stage three ?| ? Stage three ? + --+ --+ ------+| ?15-29 ?| ?Stage four ? | ? Stage four ?+ ---+ ---+ -------+| ?<15 (or dialysis) ? ?| ?Stage five ? | ? Stage five ?+ ---+ ---+ -------+ *Each stage assumes the associated GFR level has been in effect for at least three months. ?Stages 1 to 5, with or without kidney disease, indicate chronic kidney disease. Notes: Determination of stages one and two (with eGFR >59mL/min/1.73 m2) requires estimation of kidney damage for at least three months as defined by structural or functional abnormalities of the kidney, manifested by either:Pathological abnormalities or Markers of kidney damage (including abnormalities in the composition of the blood or urine or abnormalities in imaging tests). Lab Interpretation Abnormal (test code = 42011-7) [place] [facility] 16:17:00 Test Item Value Reference Range Interpretation Comments LIPASE (test code = 7426884403) 58 U/L 0-220 Lab Interpretation (test code = Normal 37582-5) [place] [facility] WITH [id number] 16:05:00 Test Item Value Reference Range Interpretation Comments WBC (test code = See_Comment [Automated 6690-2) message] The sy stem which generated this result transmitted reference range : 4.20 - 10.70 10*3/?L. The reference range was not used to interpret this result as normal/abnormal . RBC (test code = See_Comment [Automated 789-8) message] The sy stem which generated this result transmitted reference range : 4.26 - 5.52 10*6/?L. The reference range was not used to interpret this result as normal/abnormal . HGB (test code = 14.2 g/dL 12.2-16.4 718-7) HCT (test code = 41.7 % 38.4-49.3 4544-3) MCV (test code = 89.9 fL 81.7-95.6 787-2) MCH (test code = 30.6 pg 26.1-32.7 785-6) MCHC (test code = 34.1 g/dL 31.2-35 786-4) RDW-SD (test code = 43.7 fL 38.5-51.6 27118-3) RDW-CV (test code = 13.3 % 12.1-15.4 788-0) PLT (test code = See_Comment [Automated 777-3) message] The sy stem which generated this result transmitted reference range : 150 - 328 10*3/ ?L. The reference r julia was not used to interpret this result as normal/abnormal . MPV (test code = 10.7 fL 9.8-13 37281-4) NRBC/100 WBC (test See_Comment [Automat ed code = 3792236803) message] The system which generated this result transmitted reference range : 0.0 - 10.0 /100 WBCs. The refer ence range was not u sed to interpret th is result as normal/abnormal . NRBC x10^3 (test code <0.01 See_Comment [Auto mated = 1990996521) message] The s ystem which generated this result transmitted reference range : 10*3/?L. The reference range was not used to interpret this result as normal/abnormal . GRAN MAT (NEUT) % 68.5 % (test code = 770-8) IMM GRAN % (test code 0.20 % = 6434157305) LYMPH % (test code = 17.1 % 736-9) MONO % (test code = 12.1 % 5905-5) EOS % (test code = 1.4 % 713-8) BASO % (test code = 0.7 % 706-2) GRAN MAT x10^3(ANC) 6.54 10*3/uL 1.99-6.95 (test code = 1769653184) IMM GRAN x10^3 (test <0.03 0-0.06 code = 4557853193) LYMPH x10^3 (test code 1.63 10*3/uL 1.09-3.23 = 731-0) MONO x10^3 (test code 1.15 10*3/uL 0.36-1.02 H = 742-7) EOS x10^3 (test code = 0.13 10*3/uL 0.06-0.53 711-2) BASO x10^3 (test code 0.07 10*3/uL 0.01-0.09 = 704-7) Lab Interpretation Abnormal (test code = 47316-6) [facility]"
--- NOTE | 2022-01-14 17:20 | ER ---
Nurse's Notes [facility] Name: Fausto Johnson Age: 61 yrs Sex: Male : 1960 Arrival Date: 01/14/2022 Time: 15:57 Bed Waiting Private MD: Diagnosis: Presentation: 01/14 16:08 Chief complaint: Patient states: was released from hospital last week for chest pain, I iw fell and broke my left leg in two places and came back , they put a splint on it, they told me my troponin was elevated, I left AMA , my splint fell off and last Thursday it got wet and Thursday i went to [place] and got a new splint it was hurting my toes and was feeling numb and tingly , i'm here because I need my leg re-splinted and i blacked out several times. Coronavirus screen: At this time, the client does not indicate any symptoms associated with coronavirus-19. Ebola Screen: Patient negative for fever greater than or equal to 101.5 degrees Fahrenheit, and additional compatible Ebola Virus Disease symptoms Patient denies exposure to infectious person. Patient denies travel to an Ebola-affected area in the 21 days before illness onset. No symptoms or risks identified at this time. Initial Sepsis Screen: Does the patient meet any 2 criteria? No. Patient's initial sepsis screen is negative. Does the patient have a suspected source of infection? No. Patient's initial sepsis screen is negative. Risk Assessment: Do you want to hurt yourself or someone else? Patient reports no desire to harm self or others. Onset of symptoms was January 14, 2022. 16:08 Method Of Arrival: Wheelchair iw 16:08 Acuity: AMRIT 3 iw Historical: - Allergies: 16:14 NKDA; iw - Home Meds: 16:14 lisinopril 5 mg Oral tab 1 tab once daily [Active]; Advair Diskus 100-50 mcg/dose Inhl iw dsdv 1 puff 2 times per day [Active]; albuterol sulfate 90 mcg/actuation Inhl aebs 1 puff every 4 hours [Active]; Lasix 20 mg Oral tab 1 tab once daily [Active]; metoprolol tartrate 50 mg Oral tab 1 tab 2 times per day [Active]; Spiriva with HandiHaler 18 mcg inhalation CpDv once daily [Active]; - PMHx: 16:14 Bipolar disorder; Congestive heart failure; COPD; EMPHESEMA; CHF; Hypertensive iw disorder; PTSD; Assessment: 16:55 Reassessment: pt not in lobby. iw 17:18 Reassessment: called to exam room. no answer. Unable to locate patient in lobby. Vital Signs: 16:08 BP 130 / 89; Pulse 98; Resp 16; Temp 97.6; Pulse Ox 96% on R/A; ED Course: 15:57 Patient arrived in ED. mr 16:14 Triage completed. iw 16:15 Arm band placed on. 17:01 Prasad Baker MD is Attending Physician. rufus 17:02 Wilver Bedoya, RN is Primary Nurse. bp Administered Medications: No medications were administered Outcome: 17:19 Eloped before seeing physician 17:19 Patient left the ED. Signatures: Prasad Baker MD MD cha Rivera Lu mr Ariana Wooten RN RN Zayda Lowery RN RN Wilver Bedoya, ABIOLA RN bp
[2022-01-14 18:21] VITALS: BP 130/89; TEMP 97.6; O2SAT 96
== END 2022-01-14 17:19 | disposition left against medical advice (07) ==
LOC: ER 15:37
DX: Z02.9 Encounter for administrative examinations, unspecified (principal)

== ENCOUNTER 2022-02-03 22:20 | Observation (INO) | payer SELFPAY ==
--- OUTSIDE RECORDS SUMMARY | 2022-02-03 22:23 | XMS REPORT | Continuity of Care Document ---
:1960 Author Organization [facility] t Address [address] [place] [address] Care Team Providers Name Role Phone PCP, PATIENT DOES NOT HAVE A Primary Care Physician UnavailMARGOT Mandujano Attending Clinician Unavailable EBONY BAGLEY Attending Clinician Unavailable Ebony Bagley MD Attending Clinician Lakeisha Katz Attending Clinician LAKEISHA CALDERON Attending Clinician Unavailable EBONY BAGLEY Admitting Clinician Unavailable Problems Condition Condition Condition Status Onset Resolution Last Treating Co mments Source Name Details Category Date Date Treatment Clinician Date Closed Closed Disease Active Univers fracture fracture 07 ity of of left of left 00:00: [place] ankle with ankle with 00 Me dical routine routine Branch healing, healing, subsequent subsequent encounter encounter No known No known Disease Unive rs active active ity of problems problems [place] [facility] Allergies, Adverse Reactions, Alerts Allergy Allergy Status Severity Reaction(s) Onset Inactive Treating Comm ents Source Name Type Date Date Clinician NO KNOWN Drug Active Univers ALLERGIE Class ity of S [place] [facility] Social History Social Habit Start Date Stop Date Quantity Comments Source Exposure to 2022-01-02 2022-01-12 Not sure [facility] SARS-CoV-2 (event) 00:00:00 20:30:00 Medica l Branch Sex Assigned At [birth year] [facility] [place] 00:[facility] 00:00:00 Medical Branch Smoking Status Start Date Stop Date Source Tobacco smoking consumption Univ [facility] unknown Branch Medications Ordered Filled Start Stop Current Ordering Indication Dosage Frequency Signature Comments Components Source Medication Medication Date Date Medication? Clinician (SIG) Name Name amoxicillin 2022-0 Yes [id number] 500mg Take 1 Univers 500 mg 7-04 capsule by ity of capsule 00:00: mouth 3 00 (three) Medical times Branch daily. azithromyci 2021-0 Yes [id number] 250mg Take 1 Univers n 7-04 tablet by ity of (ZITHROMAX 00:00: mouth [place] Z-HANNAH) 250 00 SEE-INSTRU Med ical mg tablet CTIONS. Branch Take 500 mg day 1, then 250 mg days 2 to 5. benzonatate 0 Yes [id number] 100mg Take 1 Univers 100 mg 7-04 capsule by ity of capsule 00:00: mouth 3 00 (three) Medical times Branch daily as needed for Cough. amoxicillin 0 Yes [id number] 500mg Take 1 Univers 500 mg 7-04 capsule by ity of capsule 00:00: mouth 3 00 (three) Medical times Branch daily. azithromyci 0 Yes [id number] 250mg Take 1 Univers n 7-04 tablet by ity of (ZITHROMAX 00:00: mouth [place] Z-HANNAH) 250 00 SEE-INSTRU Med ical mg tablet CTIONS. Branch Take 500 mg day 1, then 250 mg days 2 to 5. benzonatate 0 Yes [id number] 100mg Take 1 Univers 100 mg 7-04 capsule by ity of capsule 00:00: mouth 3 (three) Medical times Branch daily as needed for Cough. ALBUTEROL 2019-0 Yes Inhale. Unive rs INHALE 8- ity of 19:11: [place] 55 Medical Branch buspirone 2019-0 Yes Take by Unive rs HCl (BUSPAR 8-04 mouth. ity of ORAL) 19:11: [place] 29 Medical [facility] trazodone 2019-0 Yes Take by Unive rs HCl 8-04 mouth. ity of (TRAZODONE 19:11: [place] ORAL) 29 Medical Branch atorvastati 2019-0 2020- No Take by Un mary n calcium 8-04 08-04 mouth. ity of (ATORVASTAT 19:11: 00:00 [place] IN ORAL) 15 :00 Medical Branch quetiapine 2020-0 Yes Take by Univ ers fumarate 8-04 mouth. ity of (SEROQUEL 18:10: [place] ORAL) 19 Medical Branch GABAPENTIN 2020-0 Yes Take by [facility] ers ORAL 8-04 mouth. ity of 18:10: [place] [facility] fluoxetine 2019-0 Yes Take by [facility] ers HCl (PROZAC 8- mouth. ity of ORAL) 18:10: [address] amlodipine 2019-0 Yes Take by [facility] ers besylate 8- mouth. ity of (AMLODIPINE 18:09: [place] ORAL) [facility] LISINOPRIL 2019-0 Yes Take by [facility] ers ORAL 8-04 mouth. ity of 18:09: [address] NaCl 0.9% 2019-0 2020- No 1000mL at 999 Uni vers (NS) bolus 01-09 mL/hr, ity of infusion 17:00: 17:24 1,000 mL, Rufino as 1,000 mL 00 :00 IV Medical Infusion, Branch ONCE, 1 dose, 01/10/20 at 1200, STAT ondansetron 2019-0 2020- No 4mg 4 mg, Slow Univers (ZOFRAN 01-09 IV Push, ity of (PF)) 17:00: 16:12 ONCE, 1 [place] injection 4 00 :00 dose, Tue Med ical mg 01/10/20 at Branch 1200, WILEY morpHINE 2019-0 2020- No 4mg 4 mg, Slow Un mary injection 4 01-09 IV Push, ity of mg 17:00: 16:13 ONCE, 1 [place] 00 :00 dose, Tue Medical 01/10/20 at Branch 1200, STAT iohexol 2019-0 2020- No 120mL 120 mL, Unive rs (OMNIPAQUE 01-09 Intravenou it y of 350 16:50: 16:50 s, ONCE, 1 [place] BULK-150 00 :00 dose, Tue Medica l mL) 01/10/20 at Branch injection 1215, 120 mL Routine ALBUTEROL 2019-0 Yes Inhale. Unive rs INHALE 8- ity of 14:11: [address] ALBUTEROL 2020-0 Yes Inhale. Unive rs INHALE - ity of 14:11: [address] buspirone 2019-0 Yes Take by [facility] rs HCl (BUSPAR 8- mouth. ity of ORAL) 14:11: [place] 29 Medical [facility] trazodone 2020-0 Yes Take by Unive rs HCl 8-04 mouth. ity of (TRAZODONE 14:11: [place] ORAL) 29 Medical Branch buspirone 2020-0 Yes Take by Unive rs HCl (BUSPAR 8-04 mouth. ity of ORAL) 14:11: [place] 29 Medical Branch trazodone 2020-0 Yes Take by Unive rs HCl 8-04 mouth. ity of (TRAZODONE 14:11: [place] ORAL) 29 Medical Branch quetiapine 2020-0 Yes Take by Univ ers fumarate 8-04 mouth. ity of (SEROQUEL 13:10: [place] ORAL) 19 Medical Branch GABAPENTIN 2020-0 Yes Take by Univ ers ORAL 8-04 mouth. ity of 13:10: [place] [address] Medical Branch fluoxetine 2020-0 Yes Take by Univ ers HCl (PROZAC 8-04 mouth. ity of ORAL) 13:10: [place] [address] Medical Branch quetiapine 2020-0 Yes Take by Univ ers fumarate 8-04 mouth. ity of (SEROQUEL 13:10: [place] ORAL) 19 Medical Branch GABAPENTIN 2020-0 Yes Take by Univ ers ORAL 8-04 mouth. ity of 13:10: [place] [address] Medical Branch fluoxetine 2020-0 Yes Take by Univ ers HCl (PROZAC 8-04 mouth. ity of ORAL) 13:10: [place] [address] Medical Branch LISINOPRIL 2020-0 Yes Take by Univ ers ORAL 8-04 mouth. ity of 13:09: [address] Branch amlodipine 2020-0 Yes Take by Univ ers besylate 8-04 mouth. ity of (AMLODIPINE 13:09: [place] ORAL) 24 Medical Branch LISINOPRIL 2020-0 Yes Take by Uni vers ORAL 8-04 mouth. ity of 13:09: [place] [address] Medical Branch amlodipine 2020-0 Yes Take by Univ ers besylate 8-04 mouth. ity of (AMLODIPINE 13:09: [place] ORAL) 24 [facility] Vital Signs Vital Name Observation Time Observation Value Comments Source Systolic blood 2022-01-13 01:32:00 144 mm[Hg] Univer sity of pressure [facility] Diastolic blood 2022-01-13 01:32:00 89 mm[Hg] Unive rsity of pressure [facility] Heart rate 2022-01-13 01:32:00 92 /min [facility] Body temperature 2022-01-13 01:32:00 37.28 Ruth Ann Univ ersity of [place] [facility] Respiratory rate 2022-01-13 01:32:00 20 /min Univ ersity of [place] [facility] Body height 2022-01-13 01:32:00 162.6 cm Universi ty of [place] [facility] Body weight 2022-01-13 01:32:00 72.576 kg Universi ty of [place] [facility] BMI 2022-01-13 01:32:00 27.46 kg/m2 Universi ty of [place] [facility] Oxygen saturation in 2022-01-13 01:32:00 95 /min University of Arterial blood by [facility] balta Pulse oximetry Branch Systolic blood 2021-12-09 16:32:00 131 mm[Hg] Univer sity of pressure [place] [facility] Diastolic blood 2021-12-09 16:32:00 71 mm[Hg] Unive rsity of [facility] Medical Branch Heart rate 2021-12-09 16:32:00 94 /min Universi ty of [place] [facility] Body temperature 2021-12-09 16:32:00 37.44 Ruth Ann Univ ersity of [place] [facility] Respiratory rate 2021-12-09 16:32:00 18 /min Univ ersity of [place] [facility] Body weight 2021-12-09 16:32:00 77.111 kg Universi ty of [place] [facility] BMI 2021-12-09 16:32:00 29.18 kg/m2 Universi ty of [place] [facility] Oxygen saturation in 2021-12-09 16:32:00 97 /min University of Arterial blood by [facility] Pulse oximetry Branch Respiratory rate 2020-01-10 18:00:00 16 /min Univ ersity of [place] [facility] Oxygen saturation in 2020-01-10 18:00:00 94 /min University of Arterial blood by [facility] Pulse oximetry Branch Systolic blood 2020-01-10 18:00:00 124 mm[Hg] Univer sity of [facility] Medical Branch Diastolic blood 2020-01-10 18:00:00 89 mm[Hg] Unive rsity of [facility] Medical Branch Heart rate 2020-01-10 18:00:00 68 /min Universi ty of [place] [facility] Body temperature 2020-01-10 15:22:00 36.67 Ruth Ann Univ ersity of [place] [facility] Body height 2020-01-10 15:22:00 162.6 cm [facility] Body weight 2020-01-10 15:22:00 77.111 kg [facility] BMI 2020-01-10 15:22:00 29.18 kg/m2 [facility] Procedures Procedure Date / Time Performed Performing Clinician Sourc e NOTICE OF PRIVACY 2022-01-13 01:25:09 Doctor Unassigned, No Univ ersity of [facility] Name Medical Branch CONSENT/REFUSAL FOR 2022-01-13 01:24:14 Doctor Unassigned, No Un iversity of [place] DIAGNOSIS AND Name Medical Branch TREATMENT URINALYSIS 2021-12-09 17:39:[address] [facility] XR CHEST 2 VW 2021-12-09 17:13:00 [facility] COVID-19 (ID NOW RAPID 2021-12-09 17:03:00 Ebony Bagley [facility] TESTING) Medical Branch CONSENT/REFUSAL FOR 2021-12-09 16:30:04 Doctor Unassigned, No Un iversity of [place] DIAGNOSIS AND Name Medical Branch TREATMENT NOTICE OF PRIVACY 2021-12-09 16:18:29 Doctor Unassigned, No [facility] URINALYSIS 2020-01-10 17:30:00 Lakeisha Calderon [facility] CT ABDOMEN PELVIS W 2020-01-10 17:00:39 Lakeisha Calderon [facility] CONTRAST Medical Branch LIPASE 2020-01-10 15:55:00 Lakeisha Calderon [facility] COMP. METABOLIC PANEL 2020-01-10 15:55:00 Lakeisha Calderon [facility] ([id number]) Medical Branch CBC WITH DIFF 2020-01-10 15:55:00 Lakeisha Calderon [facility] NOTICE OF PRIVACY 2020-01-10 15:17:33 Doctor Unassigned, No Univ ersity of [facility] Name Medical Branch CONSENT/REFUSAL FOR 2020-01-10 15:17:19 Doctor Unassigned, No Un iversity of [place] DIAGNOSIS AND Name Medical Branch TREATMENT Encounters Start End Encounter Admission Attending Care Care Encounter Source Date/Time Date/Time Type Type Clinicians Facility Department ID 2022-01-12 2022-01-12 [id number] Univers 20:30:00 21:02:00 MARGOT violeta [facility] 2022-01-12 2022-01-12 [facility] [id number] Univers 20:30:00 21:02:00 Margot PHELAN [id number] i [facility] [id number] [facility] [id number] [address] 2021-12-09 2021-12-09 Emergency [facility] [id number] Univers 11:35:00 13:31:00 EBONY [facility] 2021-12-09 2021-12-09 [facility] [id number] Univers 11:35:00 13:31:00 Ebony PHELAN [id number] i ty [facility] [id number] [facility] [id number] [address] 2020-01-10 2020-01-10 [facility] [id number] Univers 10:24:00 14:29:00 Lakeisha Phelan [id number] i ty of [place] [id number] [facility] [id number] [address] 2020-01-10 2020-01-10 Emergency [facility] [id number] Univers 10:24:00 10:24:00 [facility] Results Test Description Test Time Test Comments Results Result Comments Source URINALYSIS 2020-01-10 18:06:00 Test Item Value Reference Range Interpretation Comme nts APPEARANCE (test code = Clear Clear 3930175964) COLOR (test code = 3490196873) Yellow Yellow PH (test code = 7525733881) 4.8-8.0 SP GRAVITY (test code = 1.003-1.030 H 6116900663) GLU U QUAL (test code = Normal Normal 1817489801) BLOOD (test code = 4115525590) Negative Negative KETONES (test code = 7300328697) Negative Negative PROTEIN (test code = 2887-8) Negative Negative UROBILIN (test code = Normal Normal 4290919000) BILIRUBIN (test code = Negative Negative 7864841153) NITRITE (test code = 5287212926) Negative Negative LEUK KIERSTEN (test code = 25/uL Negative A 9406470817) RBC/HPF (test code = 4116934301) See_Comment [Automated message] The system which ge nerated this result transmit suraj reference range: 0 - 3 HP F. The reference range was not used to interpret th is result as normal/abnormal . WBC/HPF (test code = 8198546067) See_Comment H [Automated message] The system which ge nerated this result transmit suraj reference range: 0 - 5 HP F. The reference range was not used to interpret th is result as normal/abnormal . BACTERIA (test code = Negative Negative 5397623089) MUCOUS (test code = 8006322594) Slight Negative LPF A SQ EPITH (test code = <1 HPF 6566922009) Lab Interpretation (test code = Abnormal 88612-8) [facility] [id number] 17:18:24CT Abdomen and Pelvis with intravenous contrast. [...] but could be anincidental benign nonfunctioning adenoma. [facility], Radiant Results Inft User - 01/10/2020 12:19 [...] but could be anincidental benign nonfunctioning adenoma. [facility]. METABOLIC PANEL ([id number])2020-01-10 16:17:00 Test Item Value Reference Range Interpretation Comments NA (test code = 139 mmol/L 135-145 6433545300) K (test code = 4.4 mmol/L 3.5-5 6043478005) CL (test code = 108 mmol/L 98-108 6100214239) CO2 TOTAL (test code = 22 mmol/L 23-31 L 3391535982) AGAP (test code = 2-16 7839965091) BUN (test code = 32 mg/dL 7-23 H 2480203395) GLUCOSE (test code = 109 mg/dL 70-110 2063797788) CREATININE (test code = 1.11 mg/dL 0.6-1.25 9291567825) TOTAL BILI (test code = 0.6 mg/dL 0.1-1.3 4423931438) CALCIUM (test code = 9.0 mg/dL 8.6-10.6 8845256046) T PROTEIN (test code = 8.6 g/dL 6.3-8.2 H 8848542003) ALBUMIN (test code = 4.5 g/dL 3.5-5 8092218002) ALK PHOS (test code = 78 U/L 34-122 4468005015) ALTv (test code = 47 U/L 5-50 1742-6) AST(SGOT) (test code = 49 U/L 13-40 H 9425391132) eGFR Calculation mL/min/1.73m2 (Non-) (test code = 5513354474) eGFR Calculation mL/min/1.73m2 () (test code = 6321581360) RAMYA (test code = RAMYA) Association of [...] tests). Lab Interpretation Abnormal (test code = 89054-3) [facility] 16:17[facility]00 Test Item Value Reference Range Interpretation Comments LIPASE (test code = 6184117241) 58 U/L 0-220 Lab Interpretation (test code = Normal 61715-1) [facility] [id number] 16:05:00 Test Item Value Reference Range Interpretation [...] RDW-SD (test code = 43.7 fL 38.5-51.6 46152-1) RDW-CV (test code = 13.3 % 12.1-15.4 788-0) PLT (test code = See_Comment [Automated 777-3) message] The sy stem which generated this result transmitted reference range : 150 - 328 10*3/ ?L. The reference r julia was not used to interpret this result as normal/abnormal . MPV (test code = 10.7 fL 9.8-13 07797-8) NRBC/100 WBC (test See_Comment [Automat ed code = 4463446476) message] The system which generated this result transmitted reference range : 0.0 - 10.0 /100 WBCs. The refer ence range was not u sed to interpret th is result as normal/abnormal . NRBC x10^3 (test code <0.01 See_Comment [Auto mated = 8015947894) message] The s ystem which generated this result transmitted reference range : 10*3/?L. The reference range was not used to interpret this result as normal/abnormal . GRAN MAT (NEUT) % 68.5 % (test code = 770-8) IMM GRAN % (test code 0.20 % = 0763397823) LYMPH % (test code = 17.1 % 736-9) MONO % (test code = 12.1 % 5905-5) EOS % (test code = 1.4 % 713-8) BASO % (test code = 0.7 % 706-2) GRAN MAT x10^3(ANC) 6.54 10*3/uL 1.99-6.95 (test code = 8733478688) IMM GRAN x10^3 (test <0.03 0-0.06 code = 5444590874) LYMPH x10^3 (test code 1.63 10*3/uL 1.09-3.23 = 731-0) MONO x10^3 (test code 1.15 10*3/uL 0.36-1.02 H = 742-7) EOS x10^3 (test code = 0.13 10*3/uL 0.06-0.53 711-2) BASO x10^3 (test code 0.07 10*3/uL 0.01-0.09 = 704-7) Lab Interpretation Abnormal (test code = 51505-1) [facility]"
[2022-02-03 23:31] LABS: Absolute Lymphocytes (CBC) 1.2 K/uL (0.7-4.9); Lymphocytes % 15.3 % (15.3-44.8); MCV 90.9 fL (80-100); MPV 9.6 fL (7.6-11.3); RBC Red Blood Cell Count 4.51 M/uL (4.33-5.43)
[2022-02-03] MEDS ORDERED: ASPIRIN 81 MG CHEWABLE TABLET ONE (23:33)
[2022-02-04 00:09] LABS: Potassium 3.5 mmol/L (3.5-5.1)
[2022-02-04 00:10] LABS: Troponin High Sensitivity 72.9 pg/mL (<58.9)
--- NOTE | 2022-02-04 00:45 | ER ---
Nurse's Notes [facility] Name: Fausto Johnson Age: 61 yrs Sex: Male : 1960 Arrival Date: 02/03/2022 Time: 22:23 Bed 3 Private MD: Diagnosis: Chronic combined systolic (congestive) and diastolic (congestive) heart failure Presentation: 02/03 22:27 Chief complaint: Patient states: Pt states left chest pain radiating into left shoulder kb3 with indigestion and SOB x2 days. Reports he has been out of all his medications "for a while." State he was supposed to follow up with an outpatient cardiac cath 3 weeks ago after being discharged fro this ED but could not afford it. Coronavirus screen: Vaccine status: Patient reports receiving the 2nd dose of the covid vaccine. Client denies travel out of the [place] in the last 14 days. At this time, the client does not indicate any symptoms associated with coronavirus-19. Ebola Screen: Patient negative for fever greater than or equal to 101.5 degrees Fahrenheit, and additional compatible Ebola Virus Disease symptoms Patient denies exposure to infectious person. Patient denies travel to an Ebola-affected area in the 21 days before illness onset. No symptoms or risks identified at this time. Initial Sepsis Screen: Does the patient meet any 2 criteria? No. Patient's initial sepsis screen is negative. Does the patient have a suspected source of infection? No. Patient's initial sepsis screen is negative. Risk Assessment: Do you want to hurt yourself or someone else? Patient reports no desire to harm self or others. Onset of symptoms was February 01, 2022. 22:27 Method Of Arrival: Ambulatory kb3 22:27 Acuity: AMRIT 2 kb3 Triage Assessment: 22:31 General: Appears distressed, uncomfortable, Behavior is calm, cooperative. Pain: kb3 Complains of pain in anterior aspect of left upper chest, mid-sternal area and left breast Pain radiates to anterior aspect of left shoulder Pain currently is 5 out of 10 on a pain scale. Quality of pain is described as aching, dull. Historical: - Allergies: 22:31 NKDA; kb3 - PMHx: 22:31 Bipolar disorder; CHF; Congestive heart failure; COPD; EMPHESEMA; Hypertensive kb3 disorder; PTSD; - Immunization history:: Adult Immunizations up to date, Client reports receiving the 2nd dose of the Covid vaccine, Last tetanus immunization: unknown. - Social history:: Smoking status: Patient reports the use of cigarette tobacco products, smokes one-half pack cigarettes per day, Patient/guardian denies using alcohol, street drugs. Screenin:00 Abuse screen: Denies threats or abuse. Nutritional screening: No deficits noted. jb4 Tuberculosis screening: No symptoms or risk factors identified. Fall Risk None identified. Assessment: 23:00 General: see triage note. 4 02/04 00:00 Reassessment: Patient appears in no apparent distress at this time. Patient and/or jb4 family updated on plan of care and expected duration. Pain level reassessed. Patient is alert, oriented x 3, equal unlabored respirations, skin warm/dry/pink. Pt resting comfortably in bed. Vital Signs: 02/03 22:27 BP 153 / 100; Pulse 78; Resp 22; Temp 98.2; Pulse Ox 100% ; Weight 72.57 kg; Height 5 kb3 ft. 4 in. (162.56 cm); 02/04 00:15 BP 183 / 100; Pulse 72; Resp 20; Pulse Ox 93% on R/A; jb4 01:15 BP 165 / 102; Pulse 70; Resp 28; Pulse Ox 93% on R/A; jb4 02/03 22:27 Body Mass Index 27.46 (72.57 kg, 162.56 cm) kb3 ED Course: 02/03 22:23 Patient arrived in ED. ag3 22:31 Triage completed. kb3 22:33 Arm band placed on right wrist. kb3 22:47 Inserted saline lock: 20 gauge in right hand, using aseptic technique. Blood collected. kb3 22:47 Initial lab(s) drawn, by me, held in ED. EKG done, by ED staff. kb3 23:00 Patient has correct armband on for positive identification. Bed in low position. Call [facility] light in reach. Side rails up X 1. Client placed on continuous cardiac and pulse oximetry monitoring. NIBP monitoring applied. school bus monitor on. 23:00 Patient maintains SpO2 saturation greater than 95% on room air. jb4 23:10 Teddy Beltre is PHCP. jl9 23:10 Prasad Baker MD is Attending Physician. jl9 23:31 John Alexander, RN is Primary Nurse. jb4 23:55 XRAY Chest (1 view) In Process Unspecified. EDMS 02/04 00:44 Jose Solomon MD is Hospitalizing Provider. jl9 01:00 No provider procedures requiring assistance completed. Patient admitted, IV remains in jb4 place. Administered Medications: 02/03 23:31 Drug: Aspirin Chewable Tablet 324 mg Route: PO; jb4 02/04 01:37 Drug: Lasix (furosemide) 40 mg Route: IVP; Site: right hand; Medication: 01:00 VIS not applicable for this client. jb4 Outcome: 00:44 Decision to Hospitalize by Provider. jl9 01:00 Admitted to ER Hold. Please see [facility] for further documentation. jb4 01:00 Condition: stable 01:00 Discharge instructions given to patient, family, Instructed on the need for admit, Demonstrated understanding of instructions. 10:04 Patient left the ED. jl7 Signatures: Dispatcher [employer] EDAL Karlee Bhatti RN RN kl Bryson, James, RN RN jb4 Dyana Zepeda RN RN jl7 Shanel Blanc John jl9 Josie Helton, RN RN kb3
--- NOTE | 2022-02-04 00:45 | EDPHYS ---
Physician Documentation [facility] Name: Fausto Johnson Age: 61 yrs Sex: Male : 1960 Arrival Date: 02/03/2022 Time: 22:23 Bed 3 Private MD: ED Physician Prasad Baker HPI: 02/03 23:17 This 61 yrs old Male presents to ER via Ambulatory with complaints of Chest jl9 Pain. 23:17 Onset: The symptoms/episode began/occurred this morning. Associated signs and symptoms: jl9 Pertinent positives: congestion, cough. Modifying factors: The patient symptoms are alleviated by nebulizer treatment(s), remaining still, the patient symptoms are aggravated by coughing. The patient has experienced a previous episode. Historical: - Allergies: 22: NKDA; kb3 - PMHx: :31 Bipolar disorder; CHF; Congestive heart failure; COPD; EMPHESEMA; Hypertensive kb3 disorder; PTSD; - Immunization history:: Adult Immunizations up to date, Client reports receiving the 2nd dose of the Covid vaccine, Last tetanus immunization: unknown. - Social history:: Smoking status: Patient reports the use of cigarette tobacco products, smokes one-half pack cigarettes per day, Patient/guardian denies using alcohol, street drugs. ROS: 23:18 Constitutional: Negative for fever, chills, and weight loss, Eyes: Negative for injury, jl9 pain, redness, and discharge, ENT: Negative for injury, pain, and discharge, Neck: Negative for injury, pain, and swelling. 23:18 Back: Negative for injury and pain, : Negative for injury, bleeding, discharge, and swelling, MS/Extremity: Negative for injury and deformity, Skin: Negative for injury, rash, and discoloration, Neuro: Negative for headache, weakness, numbness, tingling, and seizure, Psych: Negative for depression, anxiety, suicide ideation, homicidal ideation, and hallucinations, Allergy/Immunology: Negative for hives, rash, and allergies, Endocrine: Negative for neck swelling, polydipsia, polyuria, polyphagia, and marked weight changes, Hematologic/Lymphatic: Negative for swollen nodes, abnormal bleeding, and unusual bruising. 23:18 Cardiovascular: Positive for chest pain, Negative for orthopnea, palpitations. 23:18 Respiratory: Positive for cough, Negative for hemoptysis, acute changes. Exam: 23:19 Constitutional: This is a well developed, well nourished patient who is awake, alert, jl9 and in no acute distress. Head/Face: Normocephalic, atraumatic. Eyes: Pupils equal round and reactive to light, extra-ocular motions intact. Lids and lashes normal. Conjunctiva and sclera are non-icteric and not injected. Cornea within normal limits. Periorbital areas with no swelling, redness, or edema. ENT: Mucous membranes moist. Neck: Trachea midline, no thyromegaly or masses palpated, and no cervical lymphadenopathy. Supple, full range of motion without nuchal rigidity, or vertebral point tenderness. No Meningismus. Chest/axilla: Normal chest wall appearance and motion. Nontender with no deformity. No lesions are appreciated. Cardiovascular: Regular rate and rhythm with a normal S1 and S2. No gallops, murmurs, or rubs. Normal PMI, no JVD. No pulse deficits. 23:19 Abdomen/GI: Soft, non-tender, with normal bowel sounds. No distension or tympany. No guarding or rebound. No evidence of tenderness throughout. Back: No spinal tenderness. No costovertebral tenderness. Full range of motion. Skin: Warm, dry with normal turgor. Normal color with no rashes, no lesions, and no evidence of cellulitis. MS/ Extremity: Pulses equal, no cyanosis. Neurovascular intact. Full, normal range of motion. Neuro: Awake and alert, GCS 15, oriented to person, place, time, and situation. Cranial nerves II-XII grossly intact. Motor strength 5/5 in all extremities. Sensory grossly intact. Cerebellar exam normal. Normal gait. Psych: Awake, alert, with orientation to person, place and time. Behavior, mood, and affect are within normal limits. 23:19 Respiratory: the patient does not display signs of respiratory distress, Respirations: prolonged exhalation, pursed lip breathing, Breath sounds: + upper airway congestion. Respiratory rate: 20 Vital Signs: 22:27 BP 153 / 100; Pulse 78; Resp 22; Temp 98.2; Pulse Ox 100% ; Weight 72.57 kg; Height 5 kb3 ft. 4 in. (162.56 cm); 02/04 00:15 BP 183 / 100; Pulse 72; Resp 20; Pulse Ox 93% on R/A; 01:15 BP 165 / 102; Pulse 70; Resp 28; Pulse Ox 93% on R/A; 4 02/03 22:27 Body Mass Index 27.46 (72.57 kg, 162.56 cm) kb3 MDM: 02/03 23:10 Patient medically screened. [facility] 23:19 Data reviewed: vital signs, nurses notes. 02/04 00:39 Counseling: I had a detailed discussion with the patient and/or guardian regarding: the [facility] historical points, exam findings, and any diagnostic results supporting the discharge/admit diagnosis, lab results, radiology results, the need for further work-up and treatment in the hospital. Physician consultation: JOSÉ Magaña in ED. Will see patient. . 02/03 23:10 Order name: Basic Metabolic Panel; Complete Time: 00:31 02/03 23:10 Order name: CBC with Diff; Complete Time: 00:10 [facility] 02/03 23:10 Order name: NT PRO-BNP; Complete Time: 00:31 02/03 23:10 Order name: Troponin HS; Complete Time: 00:31 02/04 00:04 Order name: SARS RAPID; Complete Time: 03:29 [facility] 02/04 05:45 Order name: Creatine Phosphokinase; Complete Time: 05:53 EDMS 02/03 23:10 Order name: XRAY Chest (1 view) 02/03 23:10 Order name: EKG; Complete Time: 23:11 02/03 23:10 Order name: Cardiac monitoring; Complete Time: 23:19 02/03 23:10 Order name: EKG - Nurse/Tech; Complete Time: 23:19 02/04 05:45 Order name: CKMB Creatine Kinase MB; Complete Time: 05:53 EDMS 02/04 05:45 Order name: Troponin High Sensitivity; Complete Time: 05:53 EDVA 02/03 23:10 Order name: IV Saline Lock; Complete Time: 23:31 02/03 23:10 Order name: Labs collected and sent; Complete Time: 23:31 02/03 23:10 Order name: O2 Per Protocol; Complete Time: 23:19 02/03 23:10 Order name: O2 Sat Monitoring; Complete Time: 23:19 Administered Medications: 02/03 23:31 Drug: Aspirin Chewable Tablet 324 mg Route: PO; jb4 02/04 01:37 Drug: Lasix (furosemide) 40 mg Route: IVP; Site: right hand; Disposition Summary: 02/04/22 00:44 Hospitalization Ordered Hospitalization Status: Inpatient Admission jl9 Provider: Jose Solomon9 Condition: Fair jl9 Problem: new jl9 Symptoms: are unchanged jl9 Bed/Room Type: Standard 9 Location: [facility] ER HOLD(02/04/22 02:17) Room Assignment: ERHOLD-(02/04/22 02:17) Diagnosis - Chronic combined systolic (congestive) and diastolic (congestive) heart failure jl9 Forms: - Medication Reconciliation Form jl9 - SBAR form jl9 Signatures: Dispatcher [employer] EDKarlee Mayorga RN RN kl Webb, Martha, RN RN John Alexander RN RN jb4 Beena Valle PA PA sb3 Teddy Beltre jl9 Josie Helton RN RN kb3 Corrections: (The following items were deleted from the chart) 02:17 00:44 Telemetry/MedSurg (Inpatient) 9 02:17 00:44 jl9
--- NOTE | 2022-02-04 00:57 | P.HP ---
Certification for Inpatient Patient admitted to: Observation With expected LOS: <2 Midnights Patient will require the following post-hospital care: None Practitioner: I am a practitioner with admitting privileges, knowledge of patient current condition, hospital course, and medical plan of care. Services: Services provided to patient in accordance with Admission requirements found in Title 42 Section 412.3 of the Code of Federal Regulations <eBena Valle - Last Filed: 02/04/22 03:47> Patient History Date of Service: 02/04/22 Reason for admission: Chest Pain History of Present Illness: Patient is a 61-year-old male with diastolic CHF (EF 45-50%), COPD, and hypertension who presented to the ED with complaints of chest pain. The pain radiates into his left shoulder and is associated with shortness of breath. He has not been taking his medications due to financial reasons. Him and his live out of their car. He was admitted here for chest pain/elevated troponin about 1 month ago, seen by cardiology, who believed the elevation was secondary to demand ischemia, and recommended an outpatient stress test. He was later admitted for a syncopal episode and ended up leaving [place]. Today, his labs are significant for BNP 21,000 and troponin 72.9. Chest x-ray showed cardiomegaly with possible pulmonary edema pattern and small pleural effusions. He was given 324 mg aspirin and 40 mg of Lasix in ED. He is admitted for further evaluation and treatment. Home medications list reviewed: Yes - Past Medical/Surgical History Diabetic: No -: Hypertension -: COPD -: CHF -: Bipolar -: Emphysema -: Appendectomy Psychosocial/ Personal History: Patient is . They are homeless. - Social History Smoking Status: Current every day smoker Alcohol use: No CD- Drugs: Yes Caffeine use: No Place of Residence: Homeless <Beena Valle - Last Filed: 02/04/22 03:47> Date of Service: 02/04/22 <Jose Solomon - Last Filed: 02/04/22 12:51> Allergies No Known Allergies Allergy (Verified 01/02/22 07:07) Home Medications: Albuterol Neb [Proventil 0.083% Neb Soln] 2.5 mg IH Q6H PRN 01/02/22 Aspirin [Aspirin EC 81 MG] 1 tab PO DAILY 01/02/22 Atorvastatin Calcium 40 mg PO BEDTIME 01/02/22 Clopidogrel Bisulfate [Plavix] 75 mg PO DAILY 01/02/22 Fluoxetine HCl [Prozac] 20 mg PO BEDTIME 01/02/22 Fluticasone/Salmeterol [Advair 250-50 Diskus] 1 each IH BID 01/02/22 Furosemide [Lasix] 40 mg PO BID 01/02/22 Gabapentin 600 mg PO BID 01/02/22 Lisinopril [Zestril] 40 mg PO DAILY 01/02/22 Metoprolol Succinate 25 mg PO BEDTIME 01/02/22 Quetiapine Fumarate [Seroquel] 50 mg PO BEDTIME 01/02/22 Buspirone HCl [Buspar] 10 mg PO BID 02/04/22 Review of Systems Respiratory: Shortness of Breath Cardiovascular: Chest Pain <Beena Valle - Last Filed: 02/04/22 03:47> Physical Examination - Physical Exam General: Alert, In no apparent distress HEENT: Atraumatic, PERRLA, EOMI, Sclerae nonicteric Neck: Supple, 2+ carotid pulse no bruit, No LAD, Without JVD or thyroid abnormality Respiratory: Crackles/rales Cardiovascular: Regular rate/rhythm, Normal S1 S2 Gastrointestinal: Normal bowel sounds, No tenderness Musculoskeletal: No tenderness Integumentary: No rashes Neurological: Normal speech, Normal strength at 5/5 x4 extr, Normal tone, Normal affect - Studies Laboratory Data (last 24 hrs) 02/03/22 23:05: WBC 7.70, Hgb 13.5 L, Hct 41.0, Plt Count 209 02/03/22 23:05: Sodium 143, Potassium 3.5, BUN 15, Creatinine 1.21, Glucose 140 H <Beena Valle - Last Filed: 02/04/22 03:47> - Studies Laboratory Data (last 24 hrs) 02/03/22 23:05: WBC 7.70, Hgb 13.5 L, Hct 41.0, Plt Count 209 02/03/22 23:05: Sodium 143, Potassium 3.5, BUN 15, Creatinine 1.21, Glucose 140 H <Jose Solomon - Last Filed: 02/04/22 12:51> Assessment and Plan - Problems (Diagnosis) (1) Chest pain Current Visit: Yes Status: Acute Qualifiers: Chest pain type: unspecified Qualified Code(s): R07.9 - Chest pain, unspecified (2) CHF (congestive heart failure) Current Visit: Yes Status: Chronic Qualifiers: Heart failure type: diastolic (3) COPD (chronic obstructive pulmonary disease) Current Visit: Yes Status: Chronic Qualifiers: COPD type: unspecified COPD Qualified Code(s): J44.9 - Chronic obstructive pulmonary disease, unspecified (4) Hypertension Current Visit: Yes Status: Chronic Qualifiers: Hypertension type: primary hypertension Qualified Code(s): I10 - Essential (primary) hypertension (5) Tobacco abuse Current Visit: Yes Status: Chronic - Plan -Initial troponin 72. Per chart review, troponin has been elevated on every visit and is likely due to demand ischemia. Will continue to trend. -Monitor on telemetry. Cardiology consult. -Patient is prescribed several medications that he has not been taking due to financial/social reasons- lasix, plavix, atorvastatin, aspirin, lisinopril, metoprolol, etc. -Breathing treatments and supplemental O2 as needed for COPD. Patient is a daily smoker. Counseled on cessation. -Monitor and replete electrolytes per protocol -Reconcile and continue home medications -Lovenox for VTE ppx -Full code Discharge Plan: Home Plan to discharge in: 24 Hours - Advance Directives Does patient have a Living Will: No Does patient have a Durable POA for Healthcare: No - Code Status/Comfort Care Code Status Assessed: Yes (Full) Critical Care: No Time Spent Managing Pts Care (In Minutes): 50 <Beena Valle - Last Filed: 02/04/22 03:47> Physician Review: Patient Assessed, Agree with Above Assessment and Plan <Jose Solomon - Last Filed: 02/04/22 12:51>
[2022-02-04] MEDS ORDERED: FUROSEMIDE 40 MG/4 ML VIAL ONE (01:43)
[2022-02-04 02:16] LABS: SARS-CoV-2 Antigen Rapid Res Negative (Negative)
[2022-02-04] MEDS ORDERED: ONDANSETRON 4 MG/2 ML VIAL IV PRN (04:55)
[2022-02-04] MEDS ORDERED: ALBUTEROL 2.5 MG/3 ML NEB SOL NEB PRN (04:55)
[2022-02-04] MEDS ORDERED: ACETAMINOPHEN 500 MG TAB PO PRN (04:55)
[2022-02-04 05:33] LABS: CKMB Creatine Kinase MB 3.1 ng/mL (1.0-3.6)
[2022-02-04 05:44] LABS: Troponin High Sensitivity 73.9 pg/mL (<58.9)
[2022-02-04 06:43] VITALS: BMI 27.4
--- NOTE | 2022-02-04 08:13 | EKG ---
Test Date: 2022-02-03 Test Time: 22:40:46 [employer]or: ANDREW MEASUREMENT RESULTS: Intervals: Rate: 76 IL: 216 QRSD: 98 QT: 430 QTc: 483 [place]: P: 42 IL: 216 QRS: -44 T: 33 INTERPRETIVE STATEMENTS: Sinus rhythm with 1st degree AV block with occasional premature ventricular complexes Possible Left atrial enlargement Left axis deviation Inferior infarct, age undetermined Anterior infarct, age undetermined Abnormal ECG Compared to ECG 01/03/2022 22:29:58 First degree AV block now present Left-axis deviation now present Myocardial infarct finding still present Electronically Signed On 02-04-22 08:11:58 CDT by Froy Chowdary
[2022-02-04] MEDS ORDERED: ENOXAPARIN 40 MG/0.4 ML SQ ONE (08:28)
[2022-02-04] MEDS ORDERED: FUROSEMIDE 40 MG TABLET ONE (08:28)
[2022-02-04] MEDS ORDERED: ASPIRIN EC 81 MG TAB PO ONE (08:28)
[2022-02-04] MEDS ORDERED: POTASSIUM 25 MEQ EFFERV TAB PO ONE (08:55)
[2022-02-04] MEDS ORDERED: FUROSEMIDE 40 MG TABLET PO SCH (09:00)
[2022-02-04] MEDS ORDERED: ASPIRIN EC 81 MG TAB PO SCH (09:00)
[2022-02-04] MEDS ORDERED: ENOXAPARIN 40 MG/0.4 ML SQ SCH (09:00)
[2022-02-04] MEDS ORDERED: POTASSIUM 25 MEQ EFFERV TAB ONE (09:08)
[2022-02-04] MEDS ORDERED: FENTANYL CITR 100 MCG/2 ML ONE (09:57)
[2022-02-04] MEDS ORDERED: HEPA 1000U/500MLS 2,000 UNIT/1,000 ML BAG IV ONE (09:57)
[2022-02-04] MEDS ORDERED: MIDAZOLAM HCL 2 MG/2 ML INJ ONE (09:57)
[2022-02-04] MEDS ORDERED: VERAPAMIL HCL 10 MG/4 ML VIAL IV ONE (09:58)
[2022-02-04] MEDS ORDERED: HEPARIN 5000 UNIT/ML 1 ML VIAL ONE (09:58)
[2022-02-04] MEDS ORDERED: ATROPINE SULF 1 MG/10 ML SYR IV ONE (09:58)
[2022-02-04] MEDS ORDERED: LIDOCAINE 1% MPF 30 ML VIAL ONE (09:58)
[2022-02-04] MEDS ORDERED: HEPARIN 10,000 UNIT/10 ML VIAL IV ONE (09:58)
[2022-02-04] MEDS ORDERED: NA CHLORIDE 0.9% 500 ML ONE (10:36)
[2022-02-04 11:59] VITALS: TEMP 97
--- NOTE | 2022-02-04 12:05 | OP ---
Date of Procedure: 02/04/2022 Surgeon: ROWAN BRYANT Procedures Performed: 1.Selective coronary angiogram. 2.Left heart catheterization. Indication: Non-ST elevation myocardial infarction. Access: Right radial artery 6-[place], closed with TR band. Complications: None. Bleeding: Less than 10 mL. Description Of Procedure: After risks, benefits, alternatives were explained, patient agreed to the procedure and signed informed consent. Patient was brought into the cardiac catheterization laborato ry, prepped and draped in usual sterile fashion. Then, we accessed the right radial artery using ped iatric micropuncture kit, placed a 6-[place] slender sheath, and took a 5-[place] catheter into t he aortic root, engaged left main, took standard views and then engaged the right coronary artery, to ok standard views. Then, catheter was advanced over the wire into the LV. Measured LVEDP and pullba ck did not record any gradient. Then, we removed the catheter and sheath and placed TR band with goo d hemostasis. Findings: 1.Left main is large and normal. 2.LAD: Large and normal. Normal diagonal branches. 3.Left circumflex: Large and normal. 4.RCA: Large and dominant, normal. 5.LVEDP elevated at 20 mmHg. Conclusion: 1.Normal coronary arteries. 2.Elevated LVEDP at 20 mmHg. Recommendations: Medical management and diuretics. SR/MODL Voice ID: [id number] Report ID: [id number]
--- NOTE | 2022-02-04 12:52 | P.DS ---
Admission Date: 02/04/22 Discharge Date: 02/04/22 Disposition: ROUTINE DISCHARGE Discharge Condition: GOOD Reason for Admission: Chest Pain Consultations: 1. Cardiology Procedures: - 02/04/2022: 1. Selective coronary angiogram. 2. Left heart catheterization. Hospital Course: DIAGNOSES: # Mild Acute on Chronic Combined Systolic/Diastolic Decompensated Congestive Heart Failure (LVEF 45-50 %) # Elevated Troponin - Chest Pain # Chronic Obstructive Pulmonary Disease # Tobacco Use Disorder # Hypertension # Bipolar Disorder HOSPITAL COURSE: Mr. Fausto Johnson is a 61-year-old male with a past medical history significant for chronic combined systolic and diastolic congestive heart failure (LVEF 45- 50%), chronic obstructive pulmonary disease, tobacco use disorder, hypertension, and bipolar disorder who was admitted to the [facility] on 02/04/2022 for chest pain. He was admitted to the Medicine service for further evaluation. Upon evaluation, his EKG was reportedly without any STEMI criteria. His troponin trend was flat at 72.9 and 73.9, respectively. Cardiology was consulted and he underwent a left heart catheterization with Dr. Sullivan. This coronary angiogram was without any obstructive lesion. He was evaluated by Dr. Chowdary following the catheterization and was cleared for discharge home with medical management. With minimal doses of diuretics, his chest pain and shortness of breath improved. On 02/04/2022, he was seen on rounds and deemed medically stable for discharge. He was discharged with instructions to schedule follow-up appointments with his PCP ([place], [place]) in 3-5 days and with Cardiology (Dr. Chowdary) in 5-7 days. He was given the opportunity to ask questions and reported no further questions. Furthermore, all questions were answered to the best of my ability. Today, I personally spent 20 minutes on his case, of which greater than 50% of the time was spent in patient education, counseling, and coordination of care as described above. Vital Signs/Physical Exam: Temp Pulse Resp BP Pulse Ox 97 F 68 16 150/97 H 98 02/04/22 11:50 02/04/22 12:26 02/04/22 12:26 02/04/22 12:26 02/04/22 08:00 General: Alert, In no apparent distress, Oriented x3 HEENT: Atraumatic, PERRLA, Mucous membr. moist/pink, EOMI, Sclerae nonicteric Neck: Supple, JVD not distended Respiratory: Clear to auscultation bilaterally, Normal air movement Cardiovascular: No edema, Regular rate/rhythm, Normal S1 S2, No gallops, No rubs, No murmurs Gastrointestinal: Normal bowel sounds, Soft and benign, Non-distended, No tenderness, No rebound, No guarding Musculoskeletal: No clubbing Integumentary: No rashes Neurological: Normal speech, Cranial nerves 3-12 intact, Normal affect Laboratory Data at Discharge: WBC 7.70 K/uL (4.3-10.9) 02/03/22 23:05 Hgb 13.5 g/dL (13.6-17.9) L 02/03/22 23:05 Hct 41.0 % (39.6-49.0) 02/03/22 23:05 Plt Count 209 K/uL (152-406) 02/03/22 23:05 Sodium 143 mmol/L (136-145) 02/03/22 23:05 Potassium 3.5 mmol/L (3.5-5.1) 02/03/22 23:05 BUN 15 mg/dL (7-18) 02/03/22 23:05 Creatinine 1.21 mg/dL (0.55-1.3) 02/03/22 23:05 Glucose 140 mg/dL (74-106) H 02/03/22 23:05 Home Medications: Albuterol Neb [Proventil 0.083% Neb Soln] 2.5 mg IH Q6H PRN 01/02/22 Aspirin [Aspirin EC 81 MG] 1 tab PO DAILY 01/02/22 Atorvastatin Calcium 40 mg PO BEDTIME 01/02/22 Clopidogrel Bisulfate [Plavix] 75 mg PO DAILY 01/02/22 Fluoxetine HCl [Prozac] 20 mg PO BEDTIME 01/02/22 Fluticasone/Salmeterol [Advair 250-50 Diskus] 1 each IH BID 01/02/22 Furosemide [Lasix] 40 mg PO BID 01/02/22 Gabapentin 600 mg PO BID 01/02/22 Lisinopril [Zestril] 40 mg PO DAILY 01/02/22 Metoprolol Succinate 25 mg PO BEDTIME 01/02/22 Quetiapine Fumarate [Seroquel] 50 mg PO BEDTIME 01/02/22 Buspirone HCl [Buspar] 10 mg PO BID 02/04/22 Physician Discharge Instructions: PROBLEM: CHEST PAIN GOAL: Clear understanding of disease process INSTRUCTIONS: [facility] [place], INFORMATION PROVIDED BELOW. TAKE MEDICATIONS PRESCRIBED. Diet: LOW SODIUM Activity: [employer] Services Needed: PRIMARY CARE Name of Company:[address] [address] [email or web address] Date or Referral: 02/04/22 IMMUNIZATION Influenza Vaccine Indicated:No Influenza Vaccine Given: Date Given: Pneumonia Vaccine Indicated: No Pneumonia Vaccine Given: Date Given: Diet: AHA Activity: [facility] Followup: Unknown,U [Primary Care Provider] - Froy Chowdary MD [ACTIVE - CAN ADMIT] - Time spent managing pt's care (in minutes): 20
[2022-02-04 13:17] VITALS: BP 155/95; O2SAT 96
--- NOTE | 2022-02-04 17:11 | RAD REPORT ---
EXAM DESCRIPTION: RAD - Chest Single View - 02/03/2022 11:53 pm CLINICAL HISTORY: CHEST PAIN COMPARISON: 01/03/2022 FINDINGS: Single frontal radiograph view of the chest. Cardiomediastinal silhouette: Cardiomegaly. Atherosclerotic calcification of thoracic aorta. Lungs: Pulmonary vascular congestion. Bilateral interstitial opacities. Possible small pleural effusi ons. No pneumothorax. Bones: Degenerative change of the spine and shoulders. Upper abdomen: No abnormality identified. IMPRESSION: 1. Cardiomegaly with possible pulmonary edema pattern and small pleural effusions. Electronically signed by: Rafael Jimenez 02/04/2022 12:06 AM CDT Due to temporary technical issues with the PACS/Fluency reporting system, reports are being signed by the in house radiologists without review as a courtesy to insure prompt reporting. The interpreting radiologist is fully responsible for the content of the report.
[2022-02-04] MEDS ORDERED: ATORVASTATIN 40 MG TAB PO SCH (21:00)
--- NOTE | 2022-02-05 22:27 | CON ---
Date of Consultation: 02/04/2022 Reason For Consultation: Unstable angina. History Of Present Illness: Mr. Johnson is 61, has a history of bipolar disorder, COPD, CHF, hyperten ana, posttraumatic stress disorder, came in with substernal chest pain radiating to the neck and luis ulders with shortness of breath and diaphoresis. According to him, he has had a history of CAD and s tent in the past, but we do not have any records in that regard. His troponin was elevated at 74. Past Medical History: Also include history of TIA. Medications: Include inhalers, aspirin, Lipitor, Lasix, metoprolol, lisinopril. Review of Systems: Negative. Social History: Negative. Family History: Negative. Physical Examination: Vital Signs: Blood pressure is sinus rhythm. HEENT: Negative. Neck: Supple with no bruit. Chest: Clear to auscultation and percussion. Cardiac: Revealed a regular rhythm and rate. No murmurs, gallops, or rubs. Abdomen: Benign. Extremities: Revealed no clubbing, cyanosis, or edema. Diagnostic Data: As stated earlier. Impression And Plan: Patient with classic symptoms for unstable angina; slightly elevated troponin; history of coronary artery disease, status post stent according to him; multiple cardiac risk factors including hypertension, dyslipidemia, COPD. I will plan a left heart catheterization to define his coronary anatomy. Patient understands the risk and benefits of the procedure and he agrees to leigh ann ZEPEDA/HARPER Voice ID: [id number] Report ID: [id number]
== END 2022-02-04 14:18 | disposition home or self-care (01) ==
LOC: ER 22:20 → ERHOLD 02-04 01:03
PROVIDERS: ADMIT Internal Medicine; ATTEND Internal Medicine
PROC: 4A023N7 Measurement of Cardiac Sampling and Pressure, Left Heart, Percutaneous Approach (ICD-10-PCS; principal; 2022-02-04)
PROC: B201YZZ Plain Radiography of Multiple Coronary Arteries using Other Contrast (ICD-10-PCS; 2022-02-04)
PROC: B205YZZ Plain Radiography of Left Heart using Other Contrast (ICD-10-PCS; 2022-02-04)
DX: R07.9 Chest pain, unspecified (principal); I11.0 Hypertensive heart disease with heart failure; I50.43 Acute on chronic combined systolic (congestive) and diastolic (congestive) heart failure; R77.8 Other specified abnormalities of plasma proteins; J44.9 Chronic obstructive pulmonary disease, unspecified; I51.7 Cardiomegaly; E78.5 Hyperlipidemia, unspecified; F31.9 Bipolar disorder, unspecified; F43.10 Post-traumatic stress disorder, unspecified; Z91.14 Patient's other noncompliance with medication regimen; Z59.02 Unsheltered homelessness; F17.210 Nicotine dependence, cigarettes, uncomplicated; Z71.6 Tobacco abuse counseling; Z86.73 Personal history of transient ischemic attack (TIA), and cerebral infarction without residual deficits; Z20.822 Contact with and (suspected) exposure to COVID-19
CPT/HCPCS: 36415; 71045; 76937; 80048; 82550; 82553; 83880; 84484; 85025; 87811; 93005; 93458; 94760; 96374; 99285; C1893; G0378; J1644; J1650; J1940; J2250; J3010; J7040; Q9966